=== PATIENT | female | born 1940 | race Caucasian/White ===

== ENCOUNTER → 2018-01-30 | Outpatient (REF) | payer MEDICARE, OTHER | LOC: M LAB REF 12:41 | DX: G47.411 Narcolepsy with cataplexy (principal) | CPT/HCPCS: 80180 ==

== ENCOUNTER → 2018-08-29 | Outpatient (REF) | payer MEDICARE, OTHER ==
[~2018-08-29] MED LIST: ACET65TA OR; BONIVA PO; CALCCHW12 OR; CIPR25SS OR; CLAR5CHW OR; COLA100C2 OR; COLA100C5 PO; CRAN400C PO; CRANPOW2 PO; DIOV320T OR; FIORICET OR; FLAG500T OR; FLON1SPR; GLIP5TAB8 PO; GLUC15002 PO; GLUCCAP13 PO; JANUVIA PO; KEPP250T PO; LEVA500T OR; LEVO250T PO; LIPI20TA PO; MODA200T15 PO; MULTIVIT PO; NEXI1CAP3 OR; NORV2TAB PO; PAXI40TA OR; PLAV75TA2 OR; SENO8.6T9 PO; VITA500C OR; ZOCO20TA OR; florinef; omega 3 PO
== END ==
LOC: M LAB REF 12:23
PROVIDERS: ATTEND Internal Medicine
DX: G47.411 Narcolepsy with cataplexy (principal)

== ENCOUNTER → 2018-10-15 | Outpatient (CLI) | payer MEDICARE, OTHER ==
--- NOTE | 2018-10-21 09:05 | SLEEP ---
DATE OF PROCEDURE: 10/15/2018 REFERRING PHYSICIAN: Dr. Rajesh He INTERPRETATION: Overnight polysomnography was performed with plan to do multiple sleep latency test the next day. The patient has a story of sleep apnea and narcolepsy with cataplexy. Polysomnography was to be performed on the patient's C-PAP. Her multiple sleep latency test was cancelled due to the patient requiring more than 2 cm increase in her C-PAP. A total of 8 hours and 52 minutes of data was reviewed with total sleep time 391.5 minutes with a short sleep latency and reduced sleep efficiency. Before the study, the patient was fit with Resmed Quattro full face mask and C-PAP trial was initiated at 11 cm of water pressure, which was increased to 14 cm of water pressure, which was successful for treating the patient's sleep apnea. There were no significant respiratory events, snoring, respiratory arousals or periodic limb movements of sleep. Electrocardiogram (EKG) revealed atrial fibrillation. Electroencephalogram (EEG) remained normal throughout. The oxygen saturation remained 88% throughout the study. CONCLUSION: Successful trial of C-PAP 14 cm of water pressure with suggested mask. Multiple sleep latency test, which was scheduled but was cancelled as the patient's C-PAP was titrated up. RECOMMENDATIONS: Nightly use of C-PAP 14 cm of water pressure with suggested mask.
== END ==
LOC: M SLEEP 19:08
PROVIDERS: ATTEND Psychiatry & Neurology Neurology
DX: G47.411 Narcolepsy with cataplexy (principal)

== ENCOUNTER → 2019-01-02 | Outpatient (CLI) | payer MEDICARE, OTHER ==
--- NOTE | 2019-01-02 17:12 | REP ---
HISTORY: Pain after trauma. There is a Colles' fracture. The bones are demineralized and degenerative changes seen throughout the wrist. The Colles' fracture has a radial intraarticular component. Electronically Signed by Masoud Ortiz DO 01/02/2019 06:01 P
== END ==
LOC: M WUC 14:29
PROVIDERS: ATTEND Nurse Practitioner Family
DX: S52.531A Colles' fracture of right radius, initial encounter for closed fracture (principal); X58.XXXA Exposure to other specified factors, initial encounter; Y92.89 Other specified places as the place of occurrence of the external cause

== ENCOUNTER → 2019-06-24 | Outpatient (REF) | payer MEDICARE, OTHER | LOC: M LAB REF 16:38 | PROVIDERS: ATTEND Internal Medicine | DX: N64.52 Nipple discharge (principal) ==

== ENCOUNTER → 2021-09-14 | Outpatient (CLI) | payer MEDICARE, OTHER | LOC: M PAIN 09:00 | PROVIDERS: ATTEND Nurse Practitioner Family | DX: M25.552 Pain in left hip (principal); E11.49 Type 2 diabetes mellitus with other diabetic neurological complication; G47.33 Obstructive sleep apnea (adult) (pediatric); I48.91 Unspecified atrial fibrillation; E78.00 Pure hypercholesterolemia, unspecified; K21.9 Gastro-esophageal reflux disease without esophagitis; G47.419 Narcolepsy without cataplexy; I95.1 Orthostatic hypotension; Z79.01 Long term (current) use of anticoagulants; Z79.891 Long term (current) use of opiate analgesic; Z79.899 Other long term (current) drug therapy; Z88.2 Allergy status to sulfonamides; Z88.0 Allergy status to penicillin; Z88.5 Allergy status to narcotic agent; Z88.8 Allergy status to other drugs, medicaments and biological substances ==

== ENCOUNTER → 2022-01-11 | Outpatient (CLI) | payer MEDICARE, OTHER ==
[2022-01-11 09:31] LABS: HEMATOCRIT 42.3 % (36.0-47.0); MEAN CORPUSCULAR HEMOGLOBIN 32.3 pg (27.0-33.0); MEAN CORPUSCULAR HGB CONC 33.1 g/dl (32.0-36.5); MEAN CORPUSCULAR VOLUME 97.7 fl (80.0-96.0); PLATELET COUNT, AUTOMATED 260 10^3/uL (150-450); RED BLOOD COUNT 4.33 10^6/uL (4.00-5.40); WHITE BLOOD COUNT 6.6 10^3/uL (4.0-10.0)
[2022-01-11 09:53] LABS: INR 1.02; PROTHROMBIN TIME 13.8 SECONDS (12.7-14.5)
[2022-01-11 10:08] LABS: ALT/SGPT 18 U/L (12-78); BILIRUBIN,TOTAL 0.4 MG/DL (0.2-1.0); BLOOD UREA NITROGEN 10 MG/DL (7-18); CALCIUM LEVEL 9.4 MG/DL (8.8-10.2); CARBON DIOXIDE LEVEL 29 MEQ/L (21-32); CHLORIDE LEVEL 101 MEQ/L (98-107); CREATININE FOR GFR 0.67 MG/DL (0.55-1.30); GLOMERULAR FILTRATION RATE > 60.0 (>32); GLUCOSE, FASTING 125 MG/DL (70-100); POTASSIUM SERUM 4.5 MEQ/L (3.5-5.1); SODIUM LEVEL 136 MEQ/L (136-145); TOTAL PROTEIN 7.5 GM/DL (6.4-8.2)
[2022-01-11 10:28] LABS: ERYTHROCYTE SEDIMENTATION RATE 33 mm/hr (0-30)
== END ==
LOC: M EKG 08:24
PROVIDERS: ATTEND Orthopaedic Surgery
DX: M16.12 Unilateral primary osteoarthritis, left hip (principal); Z79.01 Long term (current) use of anticoagulants

== ENCOUNTER → 2022-01-13 | Outpatient (CLI) | payer MEDICARE, OTHER | LOC: M RAD 08:34 | PROVIDERS: ATTEND Orthopaedic Surgery | DX: M16.12 Unilateral primary osteoarthritis, left hip (principal); I51.7 Cardiomegaly ==

== ENCOUNTER → 2022-02-15 | Outpatient (REF) ==
[2022-02-15 10:58] LABS: HEMATOCRIT 41.5 % (36.0-47.0); HEMOGLOBIN 13.4 g/dl (12.0-15.5); MEAN CORPUSCULAR HEMOGLOBIN 31.7 pg (27.0-33.0); MEAN CORPUSCULAR HGB CONC 32.3 g/dl (32.0-36.5); MEAN CORPUSCULAR VOLUME 98.1 fl (80.0-96.0); PLATELET COUNT, AUTOMATED 349 10^3/uL (150-450); RED BLOOD COUNT 4.23 10^6/uL (4.00-5.40); WHITE BLOOD COUNT 5.9 10^3/uL (4.0-10.0)
[2022-02-15 11:39] LABS: BLOOD UREA NITROGEN 11 MG/DL (7-18); CALCIUM LEVEL 9.2 MG/DL (8.8-10.2); CARBON DIOXIDE LEVEL 30 MEQ/L (21-32); CHLORIDE LEVEL 99 MEQ/L (98-107); CREATININE FOR GFR 0.77 MG/DL (0.55-1.30); GLOMERULAR FILTRATION RATE > 60.0 (>32); GLUCOSE, FASTING 113 MG/DL (70-100); POTASSIUM SERUM 3.9 MEQ/L (3.5-5.1); SODIUM LEVEL 134 MEQ/L (136-145)
== END ==
PROVIDERS: ATTEND Internal Medicine
DX: I50.30 Unspecified diastolic (congestive) heart failure (principal)

== ENCOUNTER → 2022-02-22 | Outpatient (REF) ==
[2022-02-22 12:02] LABS: HEMATOCRIT 39.1 % (36.0-47.0); HEMOGLOBIN 12.1 g/dl (12.0-15.5); MEAN CORPUSCULAR HEMOGLOBIN 31.1 pg (27.0-33.0); MEAN CORPUSCULAR HGB CONC 30.9 g/dl (32.0-36.5); MEAN CORPUSCULAR VOLUME 100.5 fl (80.0-96.0); PLATELET COUNT, AUTOMATED 299 10^3/uL (150-450); RED BLOOD COUNT 3.89 10^6/uL (4.00-5.40); WHITE BLOOD COUNT 6.5 10^3/uL (4.0-10.0)
[2022-02-22 12:53] LABS: BLOOD UREA NITROGEN 9 MG/DL (7-18); CARBON DIOXIDE LEVEL 29 MEQ/L (21-32); CHLORIDE LEVEL 102 MEQ/L (98-107); CREATININE FOR GFR 0.62 MG/DL (0.55-1.30); GLOMERULAR FILTRATION RATE > 60.0 (>32); GLUCOSE, FASTING 124 MG/DL (70-100); POTASSIUM SERUM 4.3 MEQ/L (3.5-5.1); SODIUM LEVEL 136 MEQ/L (136-145)
== END ==
PROVIDERS: ATTEND Internal Medicine
DX: I11.0 Hypertensive heart disease with heart failure (principal); I50.9 Heart failure, unspecified

== ENCOUNTER → 2022-03-08 | Outpatient (REF) | payer MEDICARE, OTHER | PROVIDERS: ATTEND Physician Assistant | DX: Z20.822 Contact with and (suspected) exposure to COVID-19 (principal) ==

== ENCOUNTER → 2022-08-18 | Outpatient (REF) | payer MEDICARE, OTHER ==
[2022-08-18 18:31] LABS: PERCENT SATURATION 25.2 % (13.2-45.0)
[2022-08-18 18:33] LABS: FERRITIN 23.8 NG/ML (7.3-270.7)
== END ==
LOC: M LAB REF 16:55
PROVIDERS: ATTEND Internal Medicine
DX: D50.9 Iron deficiency anemia, unspecified (principal)

== ENCOUNTER → 2022-08-31 | Outpatient (CLI) | payer MEDICARE, OTHER | LOC: M WHC 11:01 | PROVIDERS: ATTEND Internal Medicine | DX: M85.89 Other specified disorders of bone density and structure, multiple sites (principal); M81.0 Age-related osteoporosis without current pathological fracture ==

== ENCOUNTER 2022-11-16 11:36 | Day surgery (SDC) | payer MEDICARE, OTHER, MEDICAID ==
[~2022-11-16] VITALS: Ht 154.9 cm; Wt 108.5 kg
[~2022-11-16 11:36] MED LIST changes: +ACET650T15 PO; +CALC600T60 PO; +COEN100T PO; +DILT120T PO; +DOCU100C16 PO; +ELIQ5TAB PO; +FEXO-112 PO; +FLUT50SP17; +FURO20TA2 PO; +JANU100T PO; +LOSA25TA13 PO; +MILKSUS3 PO; +NYST1POW9 TOP; +PARO40TA2 PO; +ROSU5TAB5 PO; +VITA100093 PO
[2022-11-16] MEDS ORDERED: propofoL 200 MG/20 ML VIAL As Ordered ONE (13:33)
[2022-11-16 14:24] VITALS: BP 141/81; O2SAT 92
== END 2022-11-16 15:25 | disposition home or self-care (01) ==
LOC: M OPP 11:36
PROVIDERS: ATTEND Surgery
DX: D12.6 Benign neoplasm of colon, unspecified (principal); K64.4 Residual hemorrhoidal skin tags; K64.8 Other hemorrhoids; K62.5 Hemorrhage of anus and rectum; Z79.01 Long term (current) use of anticoagulants; Z79.82 Long term (current) use of aspirin; Z79.84 Long term (current) use of oral hypoglycemic drugs; Z88.0 Allergy status to penicillin; Z88.1 Allergy status to other antibiotic agents; Z88.2 Allergy status to sulfonamides; Z88.5 Allergy status to narcotic agent; Z88.6 Allergy status to analgesic agent

== ENCOUNTER 2023-01-18 08:31 | Day surgery (SDC) | payer MEDICARE, OTHER, MEDICAID ==
[~2023-01-18] VITALS: Ht 160 cm; Wt 109.0 kg
[~2023-01-18 08:31] MED LIST changes: +NS 1,000 ML IV ONE
[2023-01-18] MEDS ORDERED: propofoL 200 MG/20 ML VIAL As Ordered ONE (09:24)
[2023-01-18] MEDS ORDERED: LIDOCAINE 2% 100MG/5ML SDV (FOR ANES.) As Ordered ONE (09:25)
[2023-01-18] MEDS ORDERED: GLUCAGON INJ 1MG VIAL As Ordered ONE (10:40)
[2023-01-18 10:43] VITALS: TEMP 98
[2023-01-18 11:10] VITALS: BP 142/78; O2SAT 95
== END 2023-01-18 12:15 | disposition home or self-care (01) ==
LOC: M OPP 08:31
PROVIDERS: ATTEND Surgery
DX: Z86.010 Personal history of colon polyps (principal); Z08 Encounter for follow-up examination after completed treatment for malignant neoplasm; D12.2 Benign neoplasm of ascending colon; K57.30 Diverticulosis of large intestine without perforation or abscess without bleeding; Z85.038 Personal history of other malignant neoplasm of large intestine; Z87.891 Personal history of nicotine dependence; I48.91 Unspecified atrial fibrillation; I50.9 Heart failure, unspecified; E11.9 Type 2 diabetes mellitus without complications; G47.33 Obstructive sleep apnea (adult) (pediatric); Z99.89 Dependence on other enabling machines and devices; Z79.01 Long term (current) use of anticoagulants; Z79.1 Long term (current) use of non-steroidal anti-inflammatories (NSAID); Z79.51 Long term (current) use of inhaled steroids; Z79.83 Long term (current) use of bisphosphonates; Z79.84 Long term (current) use of oral hypoglycemic drugs; Z79.52 Long term (current) use of systemic steroids; Z79.02 Long term (current) use of antithrombotics/antiplatelets; Z79.899 Other long term (current) drug therapy; Z88.0 Allergy status to penicillin; Z88.1 Allergy status to other antibiotic agents; Z88.2 Allergy status to sulfonamides; Z88.5 Allergy status to narcotic agent; Z88.6 Allergy status to analgesic agent; Z88.7 Allergy status to serum and vaccine
CPT/HCPCS: 36415; 45388; 82947; J1610

== ENCOUNTER → 2023-02-27 | Outpatient (REF) | payer MEDICARE, OTHER, MEDICAID ==
[~2023-02-27] MED LIST changes: +GLIP5TAB17 PO; -GLIP5TAB8 PO; -NS 1,000 ML IV ONE
[2023-02-28 11:05] LABS: BACTERIA, URINE AUTO NEGATIVE (NEGATIVE); RBC, URINE AUTO 1 /HPF (0-3); SQUAMOUS EPITHELIAL CELL UR AU 1 /HPF (0-6); WBC, URINE AUTO 3 /HPF (0-3)
== END ==
PROVIDERS: ATTEND Internal Medicine
DX: L29.2 Pruritus vulvae (principal); Z79.899 Other long term (current) drug therapy

== ENCOUNTER → 2023-04-03 | Outpatient (REF) | payer MEDICARE, OTHER, MEDICAID ==
[2023-04-03 14:30] LABS: APPEARANCE, URINE HAZY (CLEAR); BACTERIA, URINE AUTO 1+ (NEGATIVE); BILIRUBIN, URINE AUTO NEGATIVE (NEGATIVE); BLOOD, URINE BLOOD NEGATIVE (NEGATIVE); COLOR, URINE YELLOW (YELLOW); GLUCOSE, URINE (UA) AUTO 3+ mg/dL (NEGATIVE); KETONE, URINE AUTO NEGATIVE (NEGATIVE); LEUKOCYTE ESTERASE, URINE AUTO TRACE (NEGATIVE); MUCUS, URINE SMALL (NEGATIVE); NITRITE, URINE AUTO NEGATIVE (NEGATIVE); PROTEIN, URINE AUTO NEGATIVE (NEGATIVE); RBC, URINE AUTO 3 /HPF (0-3); SPECIFIC GRAVITY URINE AUTO 1.029 (1.002-1.035); SQUAMOUS EPITHELIAL CELL UR AU 2 /HPF (0-6); UROBILINOGEN, URINE AUTO 0.2 mg/dL (0.0-2.0); WBC, URINE AUTO 0 /HPF (0-3)
== END ==
PROVIDERS: ATTEND Internal Medicine
DX: N39.0 Urinary tract infection, site not specified (principal)

== ENCOUNTER 2023-05-06 10:22 | Observation (INO) | payer MEDICARE, OTHER, MEDICAID ==
[~2023-05-06 10:22] MED LIST changes: -FLUT50SP17; +FLUTISP
[2023-05-06 11:11] LABS: BASO % 0.3 % (0.0-1.0); HEMOGLOBIN 14.5 g/dl (12.0-15.5); LYMPH # 0.2 10^3/uL (1.5-5.0); LYMPH % 2.7 % (24.0-44.0); MEAN CORPUSCULAR HEMOGLOBIN 32.7 pg (27.0-33.0); MEAN CORPUSCULAR HGB CONC 33.7 g/dl (32.0-36.5); MEAN CORPUSCULAR VOLUME 96.8 fl (80.0-96.0); MONO # 0.5 10^3/uL (0.0-0.8); MONO % 6.1 % (2.0-8.0); NEUTROPHILS % 90.3 % (36.0-66.0); PLATELET COUNT, AUTOMATED 227 10^3/uL (150-450); RED BLOOD COUNT 4.44 10^6/uL (4.00-5.40); WHITE BLOOD COUNT 8.9 10^3/uL (4.0-10.0)
[2023-05-06 11:42] LABS: ALBUMIN 3.6 G/DL (3.2-5.2); ALKALINE PHOSPHATASE 89 U/L (46-116); ALT/SGPT 17 U/L (7.0-40); AST/SGOT 18 U/L (<34); BILIRUBIN,DIRECT 0.2 MG/DL (<0.4); BILIRUBIN,TOTAL 0.4 MG/DL (0.3-1.2); BLOOD UREA NITROGEN 7 MG/DL (9-23); CALCIUM LEVEL 8.5 MG/DL (8.3-10.6); CARBON DIOXIDE LEVEL 25 MMOL/L (20-31); CHLORIDE LEVEL 97 MMOL/L (98-107); CK-MB VALUE MASS < 1.0 NG/ML (<3.6); CPK CREATINE PHOSPHOKINASE 90 U/L (34-145); CREATININE FOR GFR 0.53 MG/DL (0.55-1.30); GLOMERULAR FILTRATION RATE > 60.0 (>32); GLUCOSE, FASTING 186 MG/DL (74-106); MB/CK RELATIVE INDEX 1.11 (< OR =4); POTASSIUM SERUM 3.7 MMOL/L (3.5-5.1); SODIUM LEVEL 132 MMOL/L (136-145); TOTAL PROTEIN 7.5 G/DL (5.7-8.2)
[2023-05-06] MEDS ORDERED: OSELTAMIVIR PHOSPHATE 75 MG CAP (TAMIFLU) PO ONE (12:50)
[2023-05-06] MEDS ORDERED: GLUCOSE 4GM CHEW TABLET PO PRN (13:05)
[2023-05-06] MEDS ORDERED: GLUCAGON INJ 1MG VIAL SC PRN (13:05)
[2023-05-06] MEDS ORDERED: DEXTROSE 50% 50ML SYRINGE IV PRN (13:05)
[2023-05-06] MEDS ORDERED: MED REC IN PROGRESS XX SCH (14:40)
[2023-05-06] MEDS ORDERED: OSEL75CA2 PO (16:03)
[2023-05-06 16:43] VITALS: BP 169/84; TEMP 98.4; O2SAT 91
[2023-05-06] MEDS: INSULIN LISPRO (NovoLOG) PER UNIT SC SCH (17:26)
[2023-05-06] MEDS ORDERED: PILL CUTTER 1 EACH XX PRN (17:45)
[2023-05-06] MEDS: CALCIUM/VITAMIN D 500 MG TAB PO SCH (20:38)
[2023-05-06] MEDS: APIXABAN 5 MG TAB (ELIQUIS) PO SCH (20:39)
[2023-05-06] MEDS: dilTIAZem 60 MG TAB PO SCH (20:39)
[2023-05-06] MEDS ORDERED: CETIRIZINE (ZyrTEC) 10 MG TAB PO SCH (21:00)
[2023-05-06] MEDS ORDERED: CO-ENZYME Q10 50 MG CAP PO SCH (21:00)
[2023-05-06] MEDS ORDERED: ROSUVASTATIN 10 MG TAB (CRESTOR) PO SCH (21:00)
[2023-05-06] MEDS ORDERED: PARoxetine 20MG TABLET PO SCH (21:00)
[2023-05-06] MEDS: OSELTAMIVIR PHOSPHATE 75 MG CAP (TAMIFLU) PO SCH (21:06)
[2023-05-06 22:00] VITALS: BP 129/84; TEMP 97.2; O2SAT 94
[2023-05-07 02:19] VITALS: O2SAT 88
[2023-05-07 02:46] VITALS: O2SAT 93
[2023-05-07 04:00] VITALS: BP 160/76; TEMP 97.2; O2SAT 93
[2023-05-07 06:40] LABS: BASO % 0.3 % (0.0-1.0); HEMATOCRIT 41.7 % (36.0-47.0); HEMOGLOBIN 13.7 g/dl (12.0-15.5); LYMPH # 0.6 10^3/uL (1.5-5.0); LYMPH % 8.4 % (24.0-44.0); MEAN CORPUSCULAR HGB CONC 32.9 g/dl (32.0-36.5); MEAN CORPUSCULAR VOLUME 97.4 fl (80.0-96.0); MONO % 14.9 % (2.0-8.0); NEUTROPHILS % 75.9 % (36.0-66.0); PLATELET COUNT, AUTOMATED 201 10^3/uL (150-450); RED BLOOD COUNT 4.28 10^6/uL (4.00-5.40); WHITE BLOOD COUNT 6.6 10^3/uL (4.0-10.0)
[2023-05-07 07:27] LABS: BLOOD UREA NITROGEN 12 MG/DL (9-23); CALCIUM LEVEL 8.3 MG/DL (8.3-10.6); CARBON DIOXIDE LEVEL 25 MMOL/L (20-31); CHLORIDE LEVEL 95 MMOL/L (98-107); CREATININE FOR GFR 0.57 MG/DL (0.55-1.30); GLOMERULAR FILTRATION RATE > 60.0 (>32); GLUCOSE, FASTING 122 MG/DL (74-106); POTASSIUM SERUM 3.7 MMOL/L (3.5-5.1); SODIUM LEVEL 131 MMOL/L (136-145)
[2023-05-07] MEDS: CALCIUM/VITAMIN D 500 MG TAB PO SCH (08:30)
[2023-05-07] MEDS: OSELTAMIVIR PHOSPHATE 75 MG CAP (TAMIFLU) PO SCH (08:30)
[2023-05-07] MEDS: INSULIN LISPRO (NovoLOG) PER UNIT SC SCH ×2 (08:30→12:30)
[2023-05-07] MEDS: APIXABAN 5 MG TAB (ELIQUIS) PO SCH (08:31)
[2023-05-07] MEDS: dilTIAZem 60 MG TAB PO SCH ×2 (08:31→12:29)
[2023-05-07] MEDS ORDERED: FEXOFENADINE 60MG TAB PO SCH (09:00)
[2023-05-07] MEDS ORDERED: SITagliptin 50 MG TAB (JANUVIA) PO SCH (09:00)
[2023-05-07] MEDS ORDERED: PARoxetine 20MG TABLET PO SCH (09:00)
[2023-05-07] MEDS ORDERED: LOSARTAN 25 MG TAB PO SCH (09:00)
[2023-05-07] MEDS ORDERED: FUROSEMIDE 20 MG TAB PO SCH (09:00)
[2023-05-07 12:29] VITALS: BP 160/76
== END 2023-05-07 12:45 | disposition home or self-care (01) ==
LOC: M ED 10:22 → EDBD 10:22 → INTOOBSV 13:02 → M ED INP 13:02 → ENRESERV 15:17 → M MSPAV 16:15
PROVIDERS: ADMIT General Practice; ATTEND General Practice
DX: J96.01 Acute respiratory failure with hypoxia (principal); J09.X2 Influenza due to identified novel influenza A virus with other respiratory manifestations; E78.00 Pure hypercholesterolemia, unspecified; E78.5 Hyperlipidemia, unspecified; F41.9 Anxiety disorder, unspecified; I10 Essential (primary) hypertension; F32.A Depression, unspecified; G47.33 Obstructive sleep apnea (adult) (pediatric); G47.411 Narcolepsy with cataplexy; I25.10 Atherosclerotic heart disease of native coronary artery without angina pectoris; Z85.038 Personal history of other malignant neoplasm of large intestine; E11.9 Type 2 diabetes mellitus without complications; Z79.01 Long term (current) use of anticoagulants; Z79.899 Other long term (current) drug therapy; Z88.7 Allergy status to serum and vaccine; Z88.0 Allergy status to penicillin; Z88.1 Allergy status to other antibiotic agents; Z88.2 Allergy status to sulfonamides; Z88.5 Allergy status to narcotic agent; Z88.8 Allergy status to other drugs, medicaments and biological substances
CPT/HCPCS: 36415; 71045; 80048; 80076; 82550; 82553; 83605; 83880; 84484; 85025; 87040; 87486; 87581; 87633; 87635; 87798; 93005; 93041; 94760; 97161; 97165; 99285; G0378; J1815

== ENCOUNTER → 2023-08-07 | Outpatient (CLI) | payer MEDICARE, OTHER, MEDICAID ==
[~2023-08-07] MED LIST changes: +OSEL75CA2 PO
== END ==
LOC: M WHC 12:03
PROVIDERS: ATTEND Internal Medicine
DX: Z12.31 Encounter for screening mammogram for malignant neoplasm of breast (principal); N64.52 Nipple discharge
CPT/HCPCS: 76641; 77066; G0279

== ENCOUNTER 2023-08-18 21:02 | Inpatient (IN) | payer MEDICARE, OTHER, MEDICAID ==
[~2023-08-18] VITALS: Ht 157.5 cm; Wt 106.2 kg
[2023-08-18 21:30] LABS: VENOUS BASE EXCESS 3.2 (-2.0-2.0); VENOUS HCO3 28.4 MMOL/L (23.0-27.0); VENOUS O2 SATURATION 63.4 % (60.0-80.0); VENOUS PARTIAL PRESSURE O2 32.1 mmHg (30.0-50.0); VENOUS PH 7.418 UNITS (7.330-7.430); VENOUS STANDARD HCO3 26.3 MMOL/L; VENOUS TOTAL CO2 29.8 MMOL/L (24.0-28.0)
[2023-08-18 21:39] LABS: HEMATOCRIT 46.2 % (36.0-47.0); HEMOGLOBIN 15.5 g/dl (12.0-15.5); MEAN CORPUSCULAR HEMOGLOBIN 32.6 pg (27.0-33.0); MEAN CORPUSCULAR HGB CONC 33.5 g/dl (32.0-36.5); MEAN CORPUSCULAR VOLUME 97.1 fl (80.0-96.0); RED BLOOD COUNT 4.76 10^6/uL (4.00-5.40); WHITE BLOOD COUNT 14.2 10^3/uL (4.0-10.0)
[2023-08-18 21:40] LABS: BASO % 0.3 % (0.0-1.0); EOS # 0.1 10^3/uL (0.0-0.5); EOS % 0.5 % (0.0-3.0); LYMPH # 1.2 10^3/uL (1.5-5.0); LYMPH % 8.6 % (24.0-44.0); MONO # 1.2 10^3/uL (0.0-0.8); MONO % 8.1 % (2.0-8.0); NEUTROPHILS # 11.6 10^3/uL (1.5-8.5); NEUTROPHILS % 82.2 % (36.0-66.0); PLATELET COUNT, AUTOMATED 275 10^3/uL (150-450)
[2023-08-18 21:50] LABS: INR 1.34; PROTHROMBIN TIME 16.2 SECONDS (12.5-14.5)
[2023-08-18] MEDS: IPRATROPIUM 0.5MG/ALBUTEROL 2.5MG INH SOL UD 3ML (DUONEB) NEB PRN (22:05)
[2023-08-18 22:06] LABS: ALBUMIN 3.5 G/DL (3.2-5.2); ALKALINE PHOSPHATASE 107 U/L (46-116); ALT/SGPT 19 U/L (7.0-40); AST/SGOT 18 U/L (<34); BILIRUBIN,DIRECT 0.1 MG/DL (<0.4); BILIRUBIN,TOTAL 0.4 MG/DL (0.3-1.2); BLOOD UREA NITROGEN 11 MG/DL (9-23); CALCIUM LEVEL 9.6 MG/DL (8.3-10.6); CARBON DIOXIDE LEVEL 29 MMOL/L (20-31); CHLORIDE LEVEL 98 MMOL/L (98-107); CPK CREATINE PHOSPHOKINASE 98 U/L (34-145); CREATININE FOR GFR 0.61 MG/DL (0.55-1.30); GLOMERULAR FILTRATION RATE > 60.0 (>32); GLUCOSE, FASTING 177 MG/DL (74-106); MB/CK RELATIVE INDEX 1.02 (< OR =4); POTASSIUM SERUM 3.6 MMOL/L (3.5-5.1); SODIUM LEVEL 136 MMOL/L (136-145); TOTAL PROTEIN 7.7 G/DL (5.7-8.2)
[2023-08-18 22:11] LABS: ABG BASE EXCESS 2.5 (-2.0-2.0); ABG HCO3 25.2 MMOL/L (22.0-26.0); ABG PARTIAL PRESSURE CO2 33.7 mmHg (35.0-45.0); ABG PARTIAL PRESSURE O2 72.6 mmHg (75.0-100.0); ABG STANDARD HCO3 26.6 MMOL/L. (22.0-26.0); ABG TOTAL CO2 26.3 MMOL/L (23.0-31.0); ABG pH (ARTERIAL) 7.492 UNITS (7.350-7.450)
[2023-08-18] MEDS: cefTRIAXone SOD 2 GM in D5W MINI-BAG PLUS 50 ML IV ONE (22:19)
[2023-08-18] MEDS ORDERED: ISOVUE-370 76% 100ML VIAL As Ordered ONE (22:29)
[2023-08-18] MEDS ORDERED: GOLD BOND POWDER TOP (23:45)
[2023-08-18] MEDS ORDERED: JARD1TAB PO (23:45)
[2023-08-18] MEDS ORDERED: THERTAB52 PO (23:45)
[2023-08-18] MEDS ORDERED: MICO2CRE42 TOP (23:45)
[2023-08-18] MEDS ORDERED: PROA1AER2 INH (23:45)
[2023-08-18] MEDS ORDERED: CETI-24 PO (23:45)
[2023-08-18] MEDS ORDERED: TRUL10IN INJ (23:45)
[2023-08-18] MEDS ORDERED: CALC1TAB19 PO (23:45)
[2023-08-18] MEDS ORDERED: MEDIPAD6 EX (23:49)
[2023-08-18] MEDS ORDERED: HOME MED LIST COMPLETE! XX SCH (23:50)
[2023-08-19] MEDS ORDERED: GLUCAGON INJ 1MG VIAL SC PRN (00:40)
[2023-08-19] MEDS ORDERED: MAALOX 30 ML SUSP *UDC PO PRN (00:40)
[2023-08-19] MEDS ORDERED: DEXTROSE 50% 50ML SYRINGE IV PRN (00:40)
[2023-08-19] MEDS ORDERED: ALBUTEROL SULFATE 2.5MG/0.5ML INH NEB SOLN INH PRN (00:40)
[2023-08-19] MEDS ORDERED: GLUCOSE 4GM CHEW TABLET PO PRN (00:40)
[2023-08-19 01:19] LABS: MAGNESIUM LEVEL 1.6 MG/DL (1.8-2.4)
[2023-08-19 01:28] LABS: PROCALCITONIN 0.04 ng/ml
[2023-08-19 01:55] LABS: VENOUS O2 SATURATION 94.9 % (60.0-80.0); VENOUS PARTIAL PRESSURE CO2 37.4 mmHg (38.0-50.0); VENOUS PARTIAL PRESSURE O2 74.3 mmHg (30.0-50.0); VENOUS PH 7.426 UNITS (7.330-7.430); VENOUS STANDARD HCO3 24.4 MMOL/L; VENOUS TOTAL CO2 25.2 MMOL/L (24.0-28.0)
[2023-08-19] MEDS: IPRATROPIUM 0.5MG/ALBUTEROL 2.5MG INH SOL UD 3ML (DUONEB) INH SCH (02:00)
[2023-08-19 02:11] LABS: HEMOGLOBIN A1c 7.8 % (4.0-6.0)
[2023-08-19 02:54] VITALS: BP 149/85; TEMP 98.1; O2SAT 94
[2023-08-19] MEDS: methylPREDNISolone 40MG 1ML VIAL IV SCH (03:30)
[2023-08-19] MEDS: DOXYCYCLINE HYCLATE 100MG TABLET PO SCH (03:30)
[2023-08-19] MEDS: NS 1,000 ML IV SCH (03:31)
[2023-08-19] MEDS: CEFEPIME HCL 2 GM in D5W MINI-BAG PLUS 50 ML IV SCH (05:37)
[2023-08-19 06:38] VITALS: BP 142/71; TEMP 98.6; O2SAT 92
[2023-08-19 06:44] LABS: HEMATOCRIT 43.7 % (36.0-47.0); HEMOGLOBIN 14.4 g/dl (12.0-15.5); MEAN CORPUSCULAR VOLUME 97.1 fl (80.0-96.0); WHITE BLOOD COUNT 10.4 10^3/uL (4.0-10.0)
[2023-08-19 06:45] LABS: PLATELET COUNT, AUTOMATED 271 10^3/uL (150-450)
[2023-08-19 07:13] LABS: ALBUMIN 3.3 G/DL (3.2-5.2); ALKALINE PHOSPHATASE 93 U/L (46-116); ALT/SGPT 17 U/L (7.0-40); AST/SGOT 16 U/L (<34); BILIRUBIN,TOTAL 0.4 MG/DL (0.3-1.2); BLOOD UREA NITROGEN 11 MG/DL (9-23); CALCIUM LEVEL 9.8 MG/DL (8.3-10.6); CARBON DIOXIDE LEVEL 26 MMOL/L (20-31); CHLORIDE LEVEL 98 MMOL/L (98-107); GLOMERULAR FILTRATION RATE > 60.0 (>32); GLUCOSE, FASTING 248 MG/DL (74-106); MAGNESIUM LEVEL 1.8 MG/DL (1.8-2.4); SODIUM LEVEL 135 MMOL/L (136-145); TOTAL PROTEIN 7.4 G/DL (5.7-8.2)
[2023-08-19 07:25] LABS: PROCALCITONIN 0.05 ng/ml
[2023-08-19] MEDS: dilTIAZem 60 MG TAB PO SCH (08:34)
[2023-08-19] MEDS: INSULIN LISPRO (NovoLOG) PER UNIT SC SCH ×2 (08:34→20:19)
[2023-08-19] MEDS: LOSARTAN 25 MG TAB PO SCH (08:35)
[2023-08-19] MEDS: APIXABAN 5 MG TAB (ELIQUIS) PO SCH (08:35)
[2023-08-19] MEDS: FUROSEMIDE 20 MG TAB PO SCH (08:36)
[2023-08-19 14:00] VITALS: BP 140/72; TEMP 99.3; O2SAT 92
[2023-08-19 20:19] VITALS: BP 116/71; TEMP 98.1; O2SAT 91
[2023-08-19] MEDS: ROSUVASTATIN 10 MG TAB (CRESTOR) PO SCH (20:25)
[2023-08-19] MEDS: ACETAMINOPHEN 650MG ER TAB (TYLENOL ARTHRITIS) PO PRN (20:27)
[2023-08-19] MEDS: CETIRIZINE (ZyrTEC) 10 MG TAB PO SCH (20:27)
[2023-08-19] MEDS: DOCUSATE SODIUM 100MG CAPSULE PO SCH (20:27)
[2023-08-19] MEDS: CEFDINIR 300 MG CAP (OMNICEF) PO SCH (20:27)
[2023-08-19] MEDS: PARoxetine 20MG TABLET PO SCH (20:27)
[2023-08-20] VITALS (13 sets, daily range): BP systolic 129–138; BP diastolic 61–87; TEMP 98.1–99.3; O2SAT 86–94
[2023-08-20] MEDS: MIDODRINE 5 MG TAB PO SCH (08:00)
[2023-08-20] MEDS: BUDESONIDE 180MCG INHALER (PULMICORT FLEXHALER) INH SCH (08:00)
[2023-08-20] MEDS: metOLazone 5 MG TAB PO ONE (08:26)
[2023-08-20] MEDS ORDERED: predniSONE 20 MG TAB PO SCH (09:00)
[2023-08-20 09:23] LABS: PROCALCITONIN 0.04 ng/ml
[2023-08-20 09:24] LABS: BASO % 0.1 % (0.0-1.0); HEMATOCRIT 43.2 % (36.0-47.0); LYMPH # 0.7 10^3/uL (1.5-5.0); LYMPH % 3.2 % (24.0-44.0); MEAN CORPUSCULAR HEMOGLOBIN 32.6 pg (27.0-33.0); MEAN CORPUSCULAR HGB CONC 32.4 g/dl (32.0-36.5); MEAN CORPUSCULAR VOLUME 100.7 fl (80.0-96.0); MONO # 0.5 10^3/uL (0.0-0.8); MONO % 2.3 % (2.0-8.0); NEUTROPHILS # 19.8 10^3/uL (1.5-8.5); NEUTROPHILS % 93.7 % (36.0-66.0); PLATELET COUNT, AUTOMATED 309 10^3/uL (150-450); RED BLOOD COUNT 4.29 10^6/uL (4.00-5.40); WHITE BLOOD COUNT 21.1 10^3/uL (4.0-10.0)
[2023-08-20 09:31] LABS: ALBUMIN 3.3 G/DL (3.2-5.2); ALKALINE PHOSPHATASE 93 U/L (46-116); ALT/SGPT 17 U/L (7.0-40); AST/SGOT 18 U/L (<34); BILIRUBIN,TOTAL 0.3 MG/DL (0.3-1.2); BLOOD UREA NITROGEN 18 MG/DL (9-23); CALCIUM LEVEL 8.8 MG/DL (8.3-10.6); CARBON DIOXIDE LEVEL 22 MMOL/L (20-31); CHLORIDE LEVEL 102 MMOL/L (98-107); CREATININE FOR GFR 0.57 MG/DL (0.55-1.30); ERYTHROCYTE SEDIMENTATION RATE 80 mm/hr (0-30); GLOMERULAR FILTRATION RATE > 60.0 (>32); GLUCOSE, FASTING 349 MG/DL (74-106); POTASSIUM SERUM 4.1 MMOL/L (3.5-5.1); SODIUM LEVEL 138 MMOL/L (136-145); TOTAL PROTEIN 7.1 G/DL (5.7-8.2)
[2023-08-20] MEDS: FUROSEMIDE 40MG/4ML VIAL IV ONE ×2 (09:51→14:17)
[2023-08-20] MEDS: methylPREDNISolone 125MG 2ML VIAL IV ONE (09:52)
[2023-08-20] MEDS: IPRATROPIUM 0.5MG/ALBUTEROL 2.5MG INH SOL UD 3ML (DUONEB) NEB SCH (11:17)
[2023-08-20 11:50] LABS: ABG BASE EXCESS -0.7 (-2.0-2.0); ABG HCO3 21.8 MMOL/L (22.0-26.0); ABG O2 SATURATION 94.2 % (95.0-99.0); ABG PARTIAL PRESSURE CO2 30.5 mmHg (35.0-45.0); ABG PARTIAL PRESSURE O2 66.1 mmHg (75.0-100.0); ABG STANDARD HCO3 23.8 MMOL/L. (22.0-26.0); ABG TOTAL CO2 22.8 MMOL/L (23.0-31.0); ABG pH (ARTERIAL) 7.473 UNITS (7.350-7.450)
[2023-08-20] MEDS: guaiFENesin ER TABLET 600 MG TAB PO SCH (12:23)
[2023-08-20] MEDS: methylPREDNISolone 125MG 2ML VIAL IV SCH (16:05)
[2023-08-20] MEDS: SODIUM CHLORIDE 0.9% NASAL GEL 15GM (AYR) SCH (17:00)
[2023-08-20] MEDS: NYSTATIN 100,000 UNITS/GM TOPICAL PWD 15GM TOP SCH (21:07)
[2023-08-20] MEDS: SODIUM CHLORIDE NASAL 0.65% SPRAY BTL (OCEAN) PRN (21:11)
[2023-08-20] MEDS ORDERED: ALBUTEROL SULFATE 2.5MG/0.5ML INH NEB SOLN NEB PRN (21:50)
[2023-08-20] MEDS: FORMOTEROL FUMARATE 20 MCG/2 ML INHALATION SOLUTION (PERFOROMIST) INH SCH (21:57)
[2023-08-21] VITALS (7 sets, daily range): BP systolic 132–138; BP diastolic 77–87; TEMP 97–97.9; O2SAT 92–95
[2023-08-21 06:19] LABS: BASO % 0.1 % (0.0-1.0); EOS % 0.1 % (0.0-3.0); HEMATOCRIT 41.7 % (36.0-47.0); LYMPH # 0.5 10^3/uL (1.5-5.0); LYMPH % 2.7 % (24.0-44.0); MEAN CORPUSCULAR HEMOGLOBIN 32.3 pg (27.0-33.0); MEAN CORPUSCULAR HGB CONC 33.6 g/dl (32.0-36.5); MEAN CORPUSCULAR VOLUME 96.3 fl (80.0-96.0); MONO # 0.2 10^3/uL (0.0-0.8); MONO % 1.4 % (2.0-8.0); NEUTROPHILS # 16.1 10^3/uL (1.5-8.5); NEUTROPHILS % 94.9 % (36.0-66.0); PLATELET COUNT, AUTOMATED 297 10^3/uL (150-450); RED BLOOD COUNT 4.33 10^6/uL (4.00-5.40)
[2023-08-21 06:51] LABS: BLOOD UREA NITROGEN 34 MG/DL (9-23); CALCIUM LEVEL 9.1 MG/DL (8.3-10.6); CARBON DIOXIDE LEVEL 28 MMOL/L (20-31); CHLORIDE LEVEL 100 MMOL/L (98-107); CREATININE FOR GFR 0.65 MG/DL (0.55-1.30); GLOMERULAR FILTRATION RATE > 60.0 (>32); GLUCOSE, FASTING 300 MG/DL (74-106); POTASSIUM SERUM 4.1 MMOL/L (3.5-5.1); SODIUM LEVEL 139 MMOL/L (136-145)
[2023-08-21] MEDS: INSULIN LISPRO (NovoLOG) PER UNIT SC SCH (12:45)
[2023-08-21] MEDS: LEVEMIR (INSULIN DETEMIR) 1 UNITS/0.01ML SC ONE (12:46)
[2023-08-22] VITALS (7 sets, daily range): BP systolic 146–168; BP diastolic 80–98; TEMP 97.5–98.8; O2SAT 91–96
[2023-08-22] MEDS: CHLORASEPTIC SPRAY MT PRN (05:13)
[2023-08-22 07:30] LABS: BASO % 0.1 % (0.0-1.0); EOS % 0.1 % (0.0-3.0); HEMATOCRIT 43.5 % (36.0-47.0); HEMOGLOBIN 14.5 g/dl (12.0-15.5); LYMPH # 0.5 10^3/uL (1.5-5.0); LYMPH % 3.5 % (24.0-44.0); MEAN CORPUSCULAR HEMOGLOBIN 32.4 pg (27.0-33.0); MEAN CORPUSCULAR HGB CONC 33.3 g/dl (32.0-36.5); MEAN CORPUSCULAR VOLUME 97.3 fl (80.0-96.0); MONO # 0.3 10^3/uL (0.0-0.8); MONO % 2.3 % (2.0-8.0); NEUTROPHILS # 12.2 10^3/uL (1.5-8.5); NEUTROPHILS % 93.1 % (36.0-66.0); PLATELET COUNT, AUTOMATED 315 10^3/uL (150-450); RED BLOOD COUNT 4.47 10^6/uL (4.00-5.40); WHITE BLOOD COUNT 13.1 10^3/uL (4.0-10.0)
[2023-08-22 08:02] LABS: BLOOD UREA NITROGEN 35 MG/DL (9-23); CALCIUM LEVEL 8.8 MG/DL (8.3-10.6); CARBON DIOXIDE LEVEL 28 MMOL/L (20-31); CHLORIDE LEVEL 100 MMOL/L (98-107); GLOMERULAR FILTRATION RATE > 60.0 (>32); GLUCOSE, FASTING 280 MG/DL (74-106); POTASSIUM SERUM 4.2 MMOL/L (3.5-5.1); SODIUM LEVEL 138 MMOL/L (136-145)
[2023-08-22] MEDS: LEVEMIR (INSULIN DETEMIR) 1 UNITS/0.01ML SC SCH ×2 (09:02→21:06)
[2023-08-23 01:18] VITALS: O2SAT 94
[2023-08-23 06:00] VITALS: BP 134/82; TEMP 97.9; O2SAT 91
[2023-08-23 06:49] LABS: BASO % 0.1 % (0.0-1.0); HEMATOCRIT 44.1 % (36.0-47.0); HEMOGLOBIN 14.9 g/dl (12.0-15.5); LYMPH # 0.4 10^3/uL (1.5-5.0); MEAN CORPUSCULAR HEMOGLOBIN 32.5 pg (27.0-33.0); MEAN CORPUSCULAR HGB CONC 33.8 g/dl (32.0-36.5); MEAN CORPUSCULAR VOLUME 96.3 fl (80.0-96.0); MONO # 0.2 10^3/uL (0.0-0.8); MONO % 1.8 % (2.0-8.0); NEUTROPHILS # 10.1 10^3/uL (1.5-8.5); NEUTROPHILS % 93.1 % (36.0-66.0); PLATELET COUNT, AUTOMATED 329 10^3/uL (150-450); RED BLOOD COUNT 4.58 10^6/uL (4.00-5.40); WHITE BLOOD COUNT 10.8 10^3/uL (4.0-10.0)
[2023-08-23 07:11] LABS: BLOOD UREA NITROGEN 31 MG/DL (9-23); CALCIUM LEVEL 8.7 MG/DL (8.3-10.6); CARBON DIOXIDE LEVEL 27 MMOL/L (20-31); CHLORIDE LEVEL 101 MMOL/L (98-107); CREATININE FOR GFR 0.62 MG/DL (0.55-1.30); GLOMERULAR FILTRATION RATE > 60.0 (>32); GLUCOSE, FASTING 294 MG/DL (74-106); POTASSIUM SERUM 4.4 MMOL/L (3.5-5.1); SODIUM LEVEL 136 MMOL/L (136-145)
[2023-08-23] MEDS ORDERED: INSULIN LISPRO (NovoLOG) PER UNIT SC SCH (07:30)
[2023-08-23] MEDS: LEVEMIR (INSULIN DETEMIR) 1 UNITS/0.01ML SC ONE (09:33)
[2023-08-23] MEDS: INSULIN LISPRO (NovoLOG) PER UNIT SC SCH (09:33)
[2023-08-23 14:00] VITALS: BP 139/92; TEMP 98.8; O2SAT 89
[2023-08-23 20:45] VITALS: BP 154/84; TEMP 98.6; O2SAT 93
[2023-08-24 04:15] VITALS: BP 168/95
[2023-08-24 06:00] VITALS: BP 139/91; TEMP 97.7; O2SAT 91
[2023-08-24 07:23] LABS: BASO % 0.1 % (0.0-1.0); HEMATOCRIT 47.3 % (36.0-47.0); HEMOGLOBIN 15.7 g/dl (12.0-15.5); LYMPH # 0.3 10^3/uL (1.5-5.0); LYMPH % 1.9 % (24.0-44.0); MEAN CORPUSCULAR HGB CONC 33.2 g/dl (32.0-36.5); MEAN CORPUSCULAR VOLUME 96.3 fl (80.0-96.0); MONO # 0.4 10^3/uL (0.0-0.8); MONO % 2.4 % (2.0-8.0); NEUTROPHILS # 15.2 10^3/uL (1.5-8.5); NEUTROPHILS % 94.6 % (36.0-66.0); PLATELET COUNT, AUTOMATED 344 10^3/uL (150-450); RED BLOOD COUNT 4.91 10^6/uL (4.00-5.40); WHITE BLOOD COUNT 16.1 10^3/uL (4.0-10.0)
[2023-08-24 07:59] LABS: BLOOD UREA NITROGEN 33 MG/DL (9-23); CALCIUM LEVEL 8.6 MG/DL (8.3-10.6); CARBON DIOXIDE LEVEL 26 MMOL/L (20-31); CHLORIDE LEVEL 103 MMOL/L (98-107); GLOMERULAR FILTRATION RATE > 60.0 (>32); GLUCOSE, FASTING 310 MG/DL (74-106); POTASSIUM SERUM 4.2 MMOL/L (3.5-5.1); SODIUM LEVEL 133 MMOL/L (136-145)
[2023-08-24] MEDS: BISACODYL 10MG SUPP PR ONE ×2 (13:25→17:35)
[2023-08-24 14:16] LABS: ALBUMIN 2.8 G/DL (3.2-5.2); BILIRUBIN,DIRECT 0.1 MG/DL (<0.4); BILIRUBIN,TOTAL 0.3 MG/DL (0.3-1.2); TOTAL PROTEIN 6.6 G/DL (5.7-8.2)
[2023-08-24 14:17] LABS: LIPASE 85 U/L (12-53)
[2023-08-24 14:18] LABS: AMYLASE 114 U/L (30-118)
[2023-08-24] MEDS ORDERED: D5W/0.45% SODIUM CHLORIDE 1,000 ML IV SCH (14:35)
[2023-08-24] MEDS: NS 1,000 ML IV ONE (15:53)
[2023-08-24] MEDS: LEVEMIR (INSULIN DETEMIR) 1 UNITS/0.01ML SC ONE (15:55)
[2023-08-24 16:00] VITALS: BP 162/100; TEMP 98.1; O2SAT 92
[2023-08-24] MEDS: SENOKOT S TAB PO ONE (17:34)
[2023-08-24] MEDS: metroNIDAZOLE 500 MG in IV 1 EA IV SCH (17:34)
[2023-08-24] MEDS: **hydrALAZINE HCL** 25 MG TAB PO ONE (17:34)
[2023-08-24] MEDS: cloNIDine 0.1MG TABLET PO ONE (17:34)
[2023-08-24] MEDS: MOM 30ML SUSPENSION UDC PO PRN (20:09)
[2023-08-24] MEDS: FLEET ENEMA PR ONE (20:12)
[2023-08-24 21:32] LABS: VENOUS HCO3 23.5 MMOL/L (23.0-27.0); VENOUS O2 SATURATION 98.5 % (60.0-80.0); VENOUS PARTIAL PRESSURE CO2 35.4 mmHg (38.0-50.0); VENOUS PARTIAL PRESSURE O2 108.7 mmHg (30.0-50.0); VENOUS STANDARD HCO3 24.5 MMOL/L; VENOUS TOTAL CO2 24.6 MMOL/L (24.0-28.0)
[2023-08-24 21:40] LABS: BASO % 0.1 % (0.0-1.0); HEMATOCRIT 46.8 % (36.0-47.0); LYMPH # 0.5 10^3/uL (1.5-5.0); LYMPH % 2.4 % (24.0-44.0); MEAN CORPUSCULAR HEMOGLOBIN 32.8 pg (27.0-33.0); MEAN CORPUSCULAR HGB CONC 34.2 g/dl (32.0-36.5); MEAN CORPUSCULAR VOLUME 95.9 fl (80.0-96.0); MONO # 1.6 10^3/uL (0.0-0.8); MONO % 7.2 % (2.0-8.0); NEUTROPHILS # 19.8 10^3/uL (1.5-8.5); NEUTROPHILS % 89.4 % (36.0-66.0); PLATELET COUNT, AUTOMATED 341 10^3/uL (150-450); RED BLOOD COUNT 4.88 10^6/uL (4.00-5.40); WHITE BLOOD COUNT 22.2 10^3/uL (4.0-10.0)
[2023-08-24 21:49] VITALS: O2SAT 93
[2023-08-24 22:00] VITALS: BP 125/68; TEMP 97.5; O2SAT 93
[2023-08-24] MEDS ORDERED: methylPREDNISolone 40MG 1ML VIAL IV SCH (22:00)
[2023-08-24 22:05] LABS: ALBUMIN 2.9 G/DL (3.2-5.2); ALKALINE PHOSPHATASE 92 U/L (46-116); ALT/SGPT 43 U/L (7.0-40); AST/SGOT 27 U/L (<34); BILIRUBIN,TOTAL 0.3 MG/DL (0.3-1.2); BLOOD UREA NITROGEN 26 MG/DL (9-23); CALCIUM LEVEL 8.5 MG/DL (8.3-10.6); CARBON DIOXIDE LEVEL 26 MMOL/L (20-31); CHLORIDE LEVEL 103 MMOL/L (98-107); CREATININE FOR GFR 0.57 MG/DL (0.55-1.30); GLOMERULAR FILTRATION RATE > 60.0 (>32); GLUCOSE, FASTING 226 MG/DL (74-106); LIPASE 102 U/L (12-53); MAGNESIUM LEVEL 2.1 MG/DL (1.8-2.4); POTASSIUM SERUM 4.4 MMOL/L (3.5-5.1); SODIUM LEVEL 139 MMOL/L (136-145); TOTAL PROTEIN 6.5 G/DL (5.7-8.2)
[2023-08-24] MEDS: **hydrALAZINE HCL** 25 MG TAB PO SCH (23:05)
[2023-08-24] MEDS: NS 500 ML IV ONE (23:06)
[2023-08-24 23:12] LABS: PROCALCITONIN <0.04 ng/ml
[2023-08-25 03:26] LABS: BASO % 0.2 % (0.0-1.0); LYMPH # 0.8 10^3/uL (1.5-5.0); LYMPH % 3.6 % (24.0-44.0); MEAN CORPUSCULAR HGB CONC 34.1 g/dl (32.0-36.5); MEAN CORPUSCULAR VOLUME 96.7 fl (80.0-96.0); MONO # 1.5 10^3/uL (0.0-0.8); MONO % 6.9 % (2.0-8.0); NEUTROPHILS % 88.2 % (36.0-66.0); PLATELET COUNT, AUTOMATED 319 10^3/uL (150-450); RED BLOOD COUNT 4.55 10^6/uL (4.00-5.40); WHITE BLOOD COUNT 21.5 10^3/uL (4.0-10.0)
[2023-08-25 04:01] LABS: ALBUMIN 2.5 G/DL (3.2-5.2); ALKALINE PHOSPHATASE 78 U/L (46-116); ALT/SGPT 36 U/L (7.0-40); AST/SGOT 18 U/L (<34); BILIRUBIN,DIRECT 0.1 MG/DL (<0.4); BILIRUBIN,TOTAL 0.3 MG/DL (0.3-1.2); BLOOD UREA NITROGEN 26 MG/DL (9-23); CALCIUM LEVEL 8.2 MG/DL (8.3-10.6); CARBON DIOXIDE LEVEL 27 MMOL/L (20-31); CHLORIDE LEVEL 107 MMOL/L (98-107); CREATININE FOR GFR 0.53 MG/DL (0.55-1.30); GLOMERULAR FILTRATION RATE > 60.0 (>32); GLUCOSE, FASTING 210 MG/DL (74-106); SODIUM LEVEL 137 MMOL/L (136-145); TOTAL PROTEIN 5.8 G/DL (5.7-8.2)
[2023-08-25 06:00] VITALS: BP 133/80; TEMP 97.7; O2SAT 94
[2023-08-25 09:00] VITALS: O2SAT 95
[2023-08-25] MEDS ORDERED: FUROSEMIDE 20 MG TAB PO SCH (09:00)
[2023-08-25] MEDS: predniSONE 10MG TAB PO SCH (09:06)
[2023-08-25] MEDS: LEVEMIR (INSULIN DETEMIR) 1 UNITS/0.01ML SC SCH (09:12)
[2023-08-25] MEDS ORDERED: SODIUM CHLORIDE 0.9% NASAL GEL 15GM (AYR) PRN (13:25)
[2023-08-25 14:00] VITALS: BP 163/86; TEMP 98.1; O2SAT 94
[2023-08-25] MEDS: LOSARTAN 25 MG TAB PO ONE (14:46)
[2023-08-25] MEDS: FUROSEMIDE 20MG/2ML VIAL IV ONE (14:46)
[2023-08-25] MEDS: CO-ENZYME Q10 50 MG CAP PO SCH (19:58)
[2023-08-25 21:00] VITALS: O2SAT 93
[2023-08-25 22:01] VITALS: BP 144/75; TEMP 97.5; O2SAT 94
[2023-08-26 06:00] VITALS: BP 127/80; TEMP 98.1; O2SAT 94
[2023-08-26 06:59] LABS: BASO # 0.1 10^3/uL (0.0-0.2); BASO % 0.2 % (0.0-1.0); EOS # 0.1 10^3/uL (0.0-0.5); EOS % 0.6 % (0.0-3.0); HEMATOCRIT 44.3 % (36.0-47.0); HEMOGLOBIN 14.8 g/dl (12.0-15.5); LYMPH # 1.2 10^3/uL (1.5-5.0); LYMPH % 5.4 % (24.0-44.0); MEAN CORPUSCULAR HEMOGLOBIN 32.5 pg (27.0-33.0); MEAN CORPUSCULAR HGB CONC 33.4 g/dl (32.0-36.5); MEAN CORPUSCULAR VOLUME 97.1 fl (80.0-96.0); MONO # 1.5 10^3/uL (0.0-0.8); MONO % 6.8 % (2.0-8.0); NEUTROPHILS # 18.7 10^3/uL (1.5-8.5); NEUTROPHILS % 85.5 % (36.0-66.0); PLATELET COUNT, AUTOMATED 271 10^3/uL (150-450); RED BLOOD COUNT 4.56 10^6/uL (4.00-5.40); WHITE BLOOD COUNT 21.8 10^3/uL (4.0-10.0)
[2023-08-26 07:23] LABS: BLOOD UREA NITROGEN 17 MG/DL (9-23); CALCIUM LEVEL 7.8 MG/DL (8.3-10.6); CARBON DIOXIDE LEVEL 29 MMOL/L (20-31); CHLORIDE LEVEL 101 MMOL/L (98-107); CREATININE FOR GFR 0.59 MG/DL (0.55-1.30); GLOMERULAR FILTRATION RATE > 60.0 (>32); GLUCOSE, FASTING 104 MG/DL (74-106); POTASSIUM SERUM 3.5 MMOL/L (3.5-5.1); SODIUM LEVEL 138 MMOL/L (136-145)
[2023-08-26 09:30] VITALS: O2SAT 95
[2023-08-26] MEDS: FUROSEMIDE 20 MG TAB PO SCH (09:51)
[2023-08-26] MEDS: LOSARTAN 25 MG TAB PO SCH (09:54)
[2023-08-26 14:00] VITALS: BP 137/75; TEMP 98.2; O2SAT 94
[2023-08-26 20:18] VITALS: O2SAT 93
[2023-08-26] MEDS: SENOKOT S TAB PO SCH (21:08)
[2023-08-26 22:00] VITALS: BP 135/78; TEMP 98.1; O2SAT 93
[2023-08-27 05:55] LABS: BASO % 0.2 % (0.0-1.0); EOS # 0.1 10^3/uL (0.0-0.5); EOS % 0.7 % (0.0-3.0); HEMATOCRIT 42.4 % (36.0-47.0); HEMOGLOBIN 13.9 g/dl (12.0-15.5); LYMPH # 1.2 10^3/uL (1.5-5.0); MEAN CORPUSCULAR HEMOGLOBIN 32.2 pg (27.0-33.0); MEAN CORPUSCULAR HGB CONC 32.8 g/dl (32.0-36.5); MEAN CORPUSCULAR VOLUME 98.1 fl (80.0-96.0); MONO % 5.7 % (2.0-8.0); NEUTROPHILS # 14.8 10^3/uL (1.5-8.5); NEUTROPHILS % 84.4 % (36.0-66.0); PLATELET COUNT, AUTOMATED 270 10^3/uL (150-450); RED BLOOD COUNT 4.32 10^6/uL (4.00-5.40); WHITE BLOOD COUNT 17.6 10^3/uL (4.0-10.0)
[2023-08-27 06:00] VITALS: BP 131/80; TEMP 97.9; O2SAT 95
[2023-08-27 06:23] LABS: BLOOD UREA NITROGEN 18 MG/DL (9-23); CALCIUM LEVEL 7.8 MG/DL (8.3-10.6); CARBON DIOXIDE LEVEL 29 MMOL/L (20-31); CHLORIDE LEVEL 100 MMOL/L (98-107); CREATININE FOR GFR 0.62 MG/DL (0.55-1.30); GLOMERULAR FILTRATION RATE > 60.0 (>32); GLUCOSE, FASTING 174 MG/DL (74-106); POTASSIUM SERUM 3.7 MMOL/L (3.5-5.1); SODIUM LEVEL 136 MMOL/L (136-145)
[2023-08-27] MEDS ORDERED: PRED10TA2 PO (12:18)
[2023-08-27] MEDS ORDERED: CEFD300CAP PO (12:18)
[2023-08-27] MEDS ORDERED: VENTAER INH (12:18)
[2023-08-27] MEDS ORDERED: BUDE180INH INH (12:18)
[2023-08-27] MEDS ORDERED: DOXY100T PO (12:18)
[2023-08-27] MEDS ORDERED: MONT10TA97 PO (12:19)
[2023-08-27] MEDS: MONTELUKAST 10 MG TAB PO SCH (12:48)
[2023-08-27 14:00] VITALS: BP 123/61; TEMP 98.1; O2SAT 94
[2023-08-27] MEDS ORDERED: ARNU1INH3 PO (14:51)
[2023-08-27] MEDS ORDERED: FLUT12AE3 IH (16:30)
[2023-08-27 20:38] VITALS: BP 142/79; TEMP 98.1; O2SAT 94
[2023-08-28 05:40] VITALS: BP 137/83; TEMP 97.7; O2SAT 96
[2023-08-28 08:35] VITALS: BP 137/83
== END 2023-08-28 10:06 | DRG 871 ==
LOC: M ED 21:02 → EDBD 21:02 → M ED INP 23:38 → M MSPAV 08-19 02:54
PROVIDERS: ADMIT Internal Medicine; ATTEND Hospitalist
PROC: B246ZZZ Ultrasonography of Right and Left Heart (ICD-10-PCS; principal; 2023-08-24)
DX: A41.89 Other specified sepsis (principal); J96.01 Acute respiratory failure with hypoxia; J45.901 Unspecified asthma with (acute) exacerbation; J98.11 Atelectasis; E87.1 Hypo-osmolality and hyponatremia; Z66 Do not resuscitate; B34.8 Other viral infections of unspecified site; I11.0 Hypertensive heart disease with heart failure; G47.33 Obstructive sleep apnea (adult) (pediatric); I48.91 Unspecified atrial fibrillation; C50.919 Malignant neoplasm of unspecified site of unspecified female breast; E11.65 Type 2 diabetes mellitus with hyperglycemia; E78.5 Hyperlipidemia, unspecified; F43.10 Post-traumatic stress disorder, unspecified; G47.419 Narcolepsy without cataplexy; I50.9 Heart failure, unspecified; K59.00 Constipation, unspecified; R26.89 Other abnormalities of gait and mobility; F41.9 Anxiety disorder, unspecified; I25.10 Atherosclerotic heart disease of native coronary artery without angina pectoris; Z85.038 Personal history of other malignant neoplasm of large intestine; Z90.49 Acquired absence of other specified parts of digestive tract; Z90.79 Acquired absence of other genital organ(s); Z98.41 Cataract extraction status, right eye; Z98.42 Cataract extraction status, left eye; Z87.891 Personal history of nicotine dependence; Z79.01 Long term (current) use of anticoagulants; Z79.899 Other long term (current) drug therapy; Z88.0 Allergy status to penicillin; Z88.2 Allergy status to sulfonamides; Z88.5 Allergy status to narcotic agent; Z88.6 Allergy status to analgesic agent; Z88.1 Allergy status to other antibiotic agents; Z88.8 Allergy status to other drugs, medicaments and biological substances; Z88.7 Allergy status to serum and vaccine; Z11.52 Encounter for screening for COVID-19

== ENCOUNTER → 2023-09-27 | Outpatient (CLI) | payer MEDICARE, OTHER, MEDICAID ==
[~2023-09-27] MED LIST changes: +ARNU1INH3 PO; +BUDE180INH INH; +CALC1TAB19 PO; +CEFD300CAP PO; +CETI-24 PO; +DOXY100T PO; +FLUT12AE3 IH; +GOLD BOND POWDER TOP; +JARD1TAB PO; +MEDIPAD6 EX; +MICO2CRE42 TOP; +MONT10TA97 PO; +PRED10TA2 PO; +PROA1AER2 INH; +ROSU5TAB40 PO; -ROSU5TAB5 PO; +THERTAB52 PO; +TRUL10IN INJ; +VENTAER INH
[2023-09-27 07:39] VITALS: TEMP 98.1
[2023-09-27 10:38] VITALS: BP 146/92; O2SAT 97
== END ==
LOC: M WHCPRO 07:02
PROVIDERS: ATTEND Internal Medicine
DX: R92.2 Inconclusive mammogram (principal); C50.311 Malignant neoplasm of lower-inner quadrant of right female breast; C50.411 Malignant neoplasm of upper-outer quadrant of right female breast; N63.23 Unspecified lump in the left breast, lower outer quadrant; N63.21 Unspecified lump in the left breast, upper outer quadrant

== ENCOUNTER → 2023-12-10 | Outpatient (CLI) | payer MEDICARE, OTHER, MEDICAID ==
[~2023-12-10] MED LIST changes: -CRAN400C PO; +CRANBERRY400 MG PO
== END ==
LOC: M PLARAD 14:14
PROVIDERS: ATTEND Internal Medicine
DX: C50.811 Malignant neoplasm of overlapping sites of right female breast (principal)
CPT/HCPCS: 78815; A9552

== ENCOUNTER → 2024-01-31 | Outpatient (REF) | payer MEDICARE, OTHER, MEDICAID ==
[2024-01-31 17:21] LABS: RSV AMPLIFICATION NEGATIVE (NEGATIVE)
== END ==
LOC: M LAB REF 16:29
PROVIDERS: ATTEND Internal Medicine
DX: J20.9 Acute bronchitis, unspecified (principal); J01.90 Acute sinusitis, unspecified

== ENCOUNTER 2024-03-22 14:57 | Inpatient (IN) | payer MEDICARE, OTHER, MEDICAID ==
[~2024-03-22] VITALS: Ht 157.5 cm; Wt 106.0 kg
[~2024-03-22 14:57] MED LIST changes: +BUDE180A2 INH; -BUDE180INH INH; -MEDIPAD6 EX; +MEDIPAD6 PR; +NYST1POW3 TOP; -NYST1POW9 TOP; -ROSU5TAB40 PO; +ROSU5TAB49 PO
[2024-03-22] MEDS ORDERED: ISOVUE-370 76% 100ML VIAL As Ordered ONE (15:21)
[2024-03-22 15:26] LABS: VENOUS BASE EXCESS 1.7 (-2.0-2.0); VENOUS HCO3 26.9 MMOL/L (23.0-27.0); VENOUS O2 SATURATION 62.6 % (60.0-80.0); VENOUS PARTIAL PRESSURE O2 31.9 mmHg (30.0-50.0); VENOUS PH 7.404 UNITS (7.330-7.430); VENOUS TOTAL CO2 28.2 MMOL/L (24.0-28.0)
[2024-03-22 15:31] LABS: BASO % 0.4 % (0.0-1.0); EOS % 0.4 % (0.0-3.0); HEMATOCRIT 45.4 % (36.0-47.0); LYMPH # 0.9 10^3/uL (1.5-5.0); LYMPH % 9.6 % (24.0-44.0); MEAN CORPUSCULAR HEMOGLOBIN 32.5 pg (27.0-33.0); MEAN CORPUSCULAR VOLUME 98.3 fl (80.0-96.0); MONO # 0.8 10^3/uL (0.0-0.8); MONO % 8.1 % (2.0-8.0); NEUTROPHILS # 7.8 10^3/uL (1.5-8.5); NEUTROPHILS % 81.2 % (36.0-66.0); PLATELET COUNT, AUTOMATED 286 10^3/uL (150-450); RED BLOOD COUNT 4.62 10^6/uL (4.00-5.40); WHITE BLOOD COUNT 9.6 10^3/uL (4.0-10.0)
[2024-03-22 16:00] LABS: ALBUMIN 3.6 G/DL (3.2-5.2); ALKALINE PHOSPHATASE 116 U/L (35-104); ALT/SGPT 15 U/L (7.0-40); AST/SGOT 16 U/L (<34); BILIRUBIN,DIRECT 0.2 MG/DL (<0.4); BILIRUBIN,TOTAL 0.6 MG/DL (0.3-1.2); BLOOD UREA NITROGEN 8 MG/DL (9-23); CALCIUM LEVEL 10.6 MG/DL (8.3-10.6); CARBON DIOXIDE LEVEL 31 MMOL/L (20-31); CHLORIDE LEVEL 99 MMOL/L (98-107); CREATININE FOR GFR 0.72 MG/DL (0.55-1.30); GLOMERULAR FILTRATION RATE > 60.0 (>32); GLUCOSE, FASTING 134 MG/DL (74-106); OSMOLALITY SERUM 296 MOSM/KG (280-301); POTASSIUM SERUM 4.1 MMOL/L (3.5-5.1); SODIUM LEVEL 137 MMOL/L (136-145); TOTAL PROTEIN 7.8 G/DL (5.7-8.2)
[2024-03-22 17:12] LABS: AMPHETAMINES LEVEL URINE NEGATIVE (NEGATIVE); BARBITURATES URINE NEGATIVE (NEGATIVE); BENZODIAZEPINES URINE NEGATIVE (NEGATIVE); COCAINE METABOLITE URINE NEGATIVE (NEGATIVE); METHADONE URINE NEGATIVE (NEGATIVE)
[2024-03-22 17:13] LABS: CANNABINOIDS URINE NEGATIVE (NEGATIVE); OPIATES URINE NEGATIVE (NEGATIVE); PHENCYCLIDINE URINE NEGATIVE (NEGATIVE)
[2024-03-22] MEDS ORDERED: ALBU8.5H INH (18:10)
[2024-03-22] MEDS ORDERED: DAILTAB22 PO (18:10)
[2024-03-22] MEDS ORDERED: MONT10TA97 PO (18:10)
[2024-03-22] MEDS ORDERED: MENT113P2 TOP (18:10)
[2024-03-22] MEDS ORDERED: HOME MED LIST COMPLETE! XX SCH (18:10)
[2024-03-22] MEDS ORDERED: MIRA3350 PO (18:10)
[2024-03-22] MEDS ORDERED: [UNRECOGNIZED DRUG - CODE] PO (18:10)
[2024-03-22] MEDS ORDERED: COEN100C4 PO (18:10)
[2024-03-22] MEDS ORDERED: MUCI600T31 PO (18:10)
[2024-03-22] MEDS ORDERED: TRUL10IN SC (18:10)
[2024-03-22] MEDS ORDERED: ANAS1TAB2 PO (18:10)
[2024-03-22] MEDS ORDERED: MIRALAX *UNIT DOSE* 17GM PACKET PO PRN (18:20)
[2024-03-22] MEDS ORDERED: SENOKOT S TAB PO PRN (18:20)
[2024-03-22] MEDS ORDERED: ALBUTEROL 90 MCG/ACT 8GM HFA INHALER INH PRN (18:20)
[2024-03-22] MEDS ORDERED: MOM 30ML SUSPENSION UDC PO PRN (18:20)
[2024-03-22] MEDS ORDERED: PILL CUTTER 1 EACH XX PRN (18:45)
[2024-03-22] MEDS: cefTRIAXone SOD 1 GM in DEXTROSE 5% (D5W) ADV/MINI-BAG 50 ML IV SCH (19:25)
[2024-03-22] MEDS ORDERED: GLUCOSE 4 GM CHEW PO PRN (19:45)
[2024-03-22] MEDS ORDERED: GLUCAGON INJ 1MG VIAL SC PRN (19:45)
[2024-03-22] MEDS ORDERED: DEXTROSE 50% 50ML SYRINGE IV PRN (19:45)
[2024-03-22] MEDS ORDERED: CLOPIDOGREL 75 MG TAB PO STA (20:05)
[2024-03-22] MEDS ORDERED: LABETALOL 100MG/20ML VIAL IV PRN (20:50)
[2024-03-22 20:57] VITALS: BP 132/88; TEMP 98.2; O2SAT 93
[2024-03-22] MEDS: INSULIN LISPRO (NovoLOG) PER UNIT SC SCH (21:00)
[2024-03-22] MEDS ORDERED: APIXABAN 5 MG TAB (ELIQUIS) PO SCH (21:00)
[2024-03-22] MEDS: ROSUVASTATIN 10 MG TAB (CRESTOR) PO SCH (21:44)
[2024-03-22] MEDS: guaiFENesin ER TABLET 600 MG TAB PO SCH (21:44)
[2024-03-22] MEDS: PARoxetine 20MG TABLET PO SCH (21:44)
[2024-03-22] MEDS: CETIRIZINE (ZyrTEC) 10 MG TAB PO SCH (21:44)
[2024-03-22] MEDS ORDERED: NITROGLYCERIN 0.3MG SUBL TAB SL STA (22:29)
[2024-03-22] MEDS: ONDANSETRON 4MG 2ML VIAL IV ONE (22:31)
[2024-03-22] MEDS: MORPHINE 2 MG/ML 1ML VIAL IV ONE (22:32)
[2024-03-22 22:34] VITALS: BP 165/91; O2SAT 95
[2024-03-22 22:35] VITALS: BP 165/91; PULSE 96; O2SAT 95
[2024-03-22] MEDS: NITROGLYCERIN 0.4MG SUBL TABLET SL STA (22:36)
[2024-03-22 23:22] LABS: BLOOD UREA NITROGEN 7 MG/DL (9-23); CALCIUM LEVEL 9.5 MG/DL (8.3-10.6); CARBON DIOXIDE LEVEL 29 MMOL/L (20-31); CHLORIDE LEVEL 101 MMOL/L (98-107); CPK CREATINE PHOSPHOKINASE 86 U/L (34-145); CREATININE FOR GFR 0.57 MG/DL (0.55-1.30); GLOMERULAR FILTRATION RATE > 60.0 (>32); GLUCOSE, FASTING 145 MG/DL (74-106); MAGNESIUM LEVEL 1.9 MG/DL (1.8-2.4); MB/CK RELATIVE INDEX 3.48 (< OR =4); POTASSIUM SERUM 3.8 MMOL/L (3.5-5.1); SODIUM LEVEL 137 MMOL/L (136-145)
[2024-03-22 23:27] VITALS: BP 154/86; TEMP 98; O2SAT 94
[2024-03-22] MEDS ORDERED: hydrALAZINE 20MG/ML 1ML VIAL IV PRN (23:40)
[2024-03-22] MEDS ORDERED: NITROGLYCERIN 0.4MG SUBL TABLET SL PRN (23:55)
[2024-03-22] MEDS: METOPROLOL TART 25 MG TABLET PO ONE (23:58)
[2024-03-23] VITALS (9 sets, daily range): BP systolic 121–138; BP diastolic 57–84; TEMP 97–97.7; O2SAT 92–96
[2024-03-23] MEDS: METOPROLOL TART 25 MG TABLET PO ONE (01:13)
[2024-03-23] MEDS: LOSARTAN 50MG TABLET PO ONE (01:14)
[2024-03-23] MEDS ORDERED: HEPARIN SOD (PORCINE) 5000UNITS/ML 1ML VIAL/SYRINGE IV PRN (01:40)
[2024-03-23] MEDS: HEPARIN DRIP 25,000 UNITS in IV 1 EA IV SCH (01:49)
[2024-03-23] MEDS: METOPROLOL TART 50 MG TAB PO SCH (06:22)
[2024-03-23 07:02] LABS: BASO % 0.5 % (0.0-1.0); EOS # 0.1 10^3/uL (0.0-0.5); EOS % 0.8 % (0.0-3.0); HEMATOCRIT 40.7 % (36.0-47.0); HEMOGLOBIN 13.4 g/dl (12.0-15.5); LYMPH % 11.2 % (24.0-44.0); MEAN CORPUSCULAR HEMOGLOBIN 32.9 pg (27.0-33.0); MEAN CORPUSCULAR HGB CONC 32.9 g/dl (32.0-36.5); MONO # 0.9 10^3/uL (0.0-0.8); MONO % 10.7 % (2.0-8.0); NEUTROPHILS # 6.7 10^3/uL (1.5-8.5); NEUTROPHILS % 76.3 % (36.0-66.0); PLATELET COUNT, AUTOMATED 258 10^3/uL (150-450); RED BLOOD COUNT 4.07 10^6/uL (4.00-5.40); WHITE BLOOD COUNT 8.8 10^3/uL (4.0-10.0)
[2024-03-23 07:37] LABS: BLOOD UREA NITROGEN 11 MG/DL (9-23); CALCIUM LEVEL 9.2 MG/DL (8.3-10.6); CARBON DIOXIDE LEVEL 29 MMOL/L (20-31); CHLORIDE LEVEL 103 MMOL/L (98-107); CHOLESTEROL LEVEL 130 MG/DL (<200); CHOLESTEROL RISK RATIO 3.61 (<5); CREATININE FOR GFR 0.64 MG/DL (0.55-1.30); GLOMERULAR FILTRATION RATE > 60.0 (>32); GLUCOSE, FASTING 140 MG/DL (74-106); LDL CHOLESTEROL 65.6 MG/DL (<100); POTASSIUM SERUM 4.1 MMOL/L (3.5-5.1); SODIUM LEVEL 139 MMOL/L (136-145); TRIGLYCERIDES LEVEL 142 MG/DL (<150)
[2024-03-23 07:40] LABS: HEMOGLOBIN A1c 6.8 % (4.0-6.0)
[2024-03-23] MEDS: LOSARTAN 50MG TABLET PO SCH (08:58)
[2024-03-23] MEDS: MONTELUKAST 10 MG TAB PO SCH (08:58)
[2024-03-23] MEDS: DAPAGLIFLOZIN PROPANEDIOL 10MG TABLET (FARXIGA) PO SCH (08:58)
[2024-03-23] MEDS: LETROZOLE 2.5 MG TAB PO SCH (08:58)
[2024-03-23] MEDS: INSULIN LISPRO (NovoLOG) PER UNIT SC SCH (08:59)
[2024-03-23] MEDS ORDERED: CLOPIDOGREL 75 MG TAB PO SCH (09:00)
[2024-03-23] MEDS ORDERED: METOPROLOL TART 25 MG TABLET PO SCH (09:00)
[2024-03-23] MEDS: RIVAROXABAN 20MG TAB (XARELTO) PO SCH (17:59)
[2024-03-24] VITALS (18 sets, daily range): BP systolic 115–130; BP diastolic 59–79; TEMP 96.6–98.1; O2SAT 92–97
[2024-03-24] MEDS: ACETAMINOPHEN 325 MG TAB PO PRN (06:19)
[2024-03-24 07:40] LABS: BASO # 0.1 10^3/uL (0.0-0.2); BASO % 0.5 % (0.0-1.0); EOS # 0.1 10^3/uL (0.0-0.5); HEMATOCRIT 42.1 % (36.0-47.0); HEMOGLOBIN 13.8 g/dl (12.0-15.5); LYMPH # 0.7 10^3/uL (1.5-5.0); LYMPH % 7.3 % (24.0-44.0); MEAN CORPUSCULAR HEMOGLOBIN 32.1 pg (27.0-33.0); MEAN CORPUSCULAR HGB CONC 32.8 g/dl (32.0-36.5); MEAN CORPUSCULAR VOLUME 97.9 fl (80.0-96.0); MONO % 10.1 % (2.0-8.0); NEUTROPHILS # 7.8 10^3/uL (1.5-8.5); NEUTROPHILS % 80.6 % (36.0-66.0); PLATELET COUNT, AUTOMATED 243 10^3/uL (150-450); WHITE BLOOD COUNT 9.7 10^3/uL (4.0-10.0)
[2024-03-24 08:08] LABS: BLOOD UREA NITROGEN 15 MG/DL (9-23); CARBON DIOXIDE LEVEL 29 MMOL/L (20-31); CHLORIDE LEVEL 100 MMOL/L (98-107); CREATININE FOR GFR 0.67 MG/DL (0.55-1.30); GLOMERULAR FILTRATION RATE > 60.0 (>32); GLUCOSE, FASTING 133 MG/DL (74-106); MAGNESIUM LEVEL 1.9 MG/DL (1.8-2.4); POTASSIUM SERUM 4.5 MMOL/L (3.5-5.1); SODIUM LEVEL 138 MMOL/L (136-145)
[2024-03-24] MEDS ORDERED: RIVAROXABAN 20MG TAB (XARELTO) PO SCH (10:35)
[2024-03-24] MEDS: RIVAROXABAN 15MG TAB (XARELTO) PO STA (12:55)
[2024-03-24] MEDS: CEFDINIR 300 MG CAP (OMNICEF) PO SCH (13:03)
[2024-03-24] MEDS: RIVAROXABAN 15MG TAB (XARELTO) PO SCH (17:50)
[2024-03-25] VITALS (14 sets, daily range): BP systolic 103–141; BP diastolic 58–79; TEMP 93.1–98.5; O2SAT 89–96
[2024-03-25 07:27] LABS: BASO % 0.5 % (0.0-1.0); EOS # 0.1 10^3/uL (0.0-0.5); EOS % 1.4 % (0.0-3.0); HEMOGLOBIN 13.5 g/dl (12.0-15.5); LYMPH # 0.8 10^3/uL (1.5-5.0); LYMPH % 9.3 % (24.0-44.0); MEAN CORPUSCULAR HEMOGLOBIN 32.5 pg (27.0-33.0); MEAN CORPUSCULAR HGB CONC 32.9 g/dl (32.0-36.5); MEAN CORPUSCULAR VOLUME 98.6 fl (80.0-96.0); MONO # 0.9 10^3/uL (0.0-0.8); MONO % 10.9 % (2.0-8.0); NEUTROPHILS # 6.5 10^3/uL (1.5-8.5); NEUTROPHILS % 77.5 % (36.0-66.0); PLATELET COUNT, AUTOMATED 243 10^3/uL (150-450); RED BLOOD COUNT 4.16 10^6/uL (4.00-5.40); WHITE BLOOD COUNT 8.4 10^3/uL (4.0-10.0)
[2024-03-25 07:44] LABS: BLOOD UREA NITROGEN 14 MG/DL (9-23); CALCIUM LEVEL 8.6 MG/DL (8.3-10.6); CARBON DIOXIDE LEVEL 29 MMOL/L (20-31); CHLORIDE LEVEL 102 MMOL/L (98-107); CREATININE FOR GFR 0.55 MG/DL (0.55-1.30); GLOMERULAR FILTRATION RATE > 60.0 (>32); GLUCOSE, FASTING 135 MG/DL (74-106); POTASSIUM SERUM 4.5 MMOL/L (3.5-5.1); SODIUM LEVEL 136 MMOL/L (136-145)
[2024-03-26] VITALS (11 sets, daily range): BP systolic 126–172; BP diastolic 64–74; TEMP 96–98.2; O2SAT 92–98
[2024-03-26 17:12] LABS: BASO # 0.1 10^3/uL (0.0-0.2); BASO % 0.6 % (0.0-1.0); EOS # 0.2 10^3/uL (0.0-0.5); EOS % 1.5 % (0.0-3.0); HEMATOCRIT 43.5 % (36.0-47.0); HEMOGLOBIN 14.3 g/dl (12.0-15.5); LYMPH # 1.8 10^3/uL (1.5-5.0); LYMPH % 18.1 % (24.0-44.0); MEAN CORPUSCULAR HGB CONC 32.9 g/dl (32.0-36.5); MEAN CORPUSCULAR VOLUME 97.3 fl (80.0-96.0); MONO # 1.2 10^3/uL (0.0-0.8); MONO % 12.4 % (2.0-8.0); NEUTROPHILS # 6.6 10^3/uL (1.5-8.5); NEUTROPHILS % 67.1 % (36.0-66.0); PLATELET COUNT, AUTOMATED 295 10^3/uL (150-450); RED BLOOD COUNT 4.47 10^6/uL (4.00-5.40); WHITE BLOOD COUNT 9.8 10^3/uL (4.0-10.0)
[2024-03-26 17:40] LABS: ALKALINE PHOSPHATASE 116 U/L (35-104); ALT/SGPT 14 U/L (7.0-40); AST/SGOT 14 U/L (<34); BILIRUBIN,TOTAL 0.3 MG/DL (0.3-1.2); BLOOD UREA NITROGEN 16 MG/DL (9-23); CALCIUM LEVEL 9.2 MG/DL (8.3-10.6); CARBON DIOXIDE LEVEL 25 MMOL/L (20-31); CHLORIDE LEVEL 104 MMOL/L (98-107); CK-MB VALUE MASS < 1.0 NG/ML (<3.6); CPK CREATINE PHOSPHOKINASE 62 U/L (34-145); CREATININE FOR GFR 0.54 MG/DL (0.55-1.30); GLOMERULAR FILTRATION RATE > 60.0 (>32); GLUCOSE, FASTING 127 MG/DL (74-106); MB/CK RELATIVE INDEX 1.61 (< OR =4); POTASSIUM SERUM 4.1 MMOL/L (3.5-5.1); SODIUM LEVEL 136 MMOL/L (136-145); TOTAL PROTEIN 7.4 G/DL (5.7-8.2)
[2024-03-27] VITALS (15 sets, daily range): BP systolic 141–150; BP diastolic 65–71; TEMP 96.8; O2SAT 86–97
[2024-03-27] MEDS ORDERED: CEFD300CAP PO (09:38)
[2024-03-27] MEDS ORDERED: XARE20TA PO (09:41)
[2024-03-27] MEDS ORDERED: XARE15TA PO (09:41)
[2024-03-27] MEDS ORDERED: ROSU10TA61 PO (09:41)
== END 2024-03-27 11:58 | DRG 64 ==
LOC: M ED 14:57 → M ED INP 17:36 → M PCU 21:05
PROVIDERS: ADMIT Internal Medicine; ATTEND Internal Medicine
DX: I63.40 Cerebral infarction due to embolism of unspecified cerebral artery (principal); G93.41 Metabolic encephalopathy; I50.32 Chronic diastolic (congestive) heart failure; N39.0 Urinary tract infection, site not specified; I48.20 Chronic atrial fibrillation, unspecified; I25.10 Atherosclerotic heart disease of native coronary artery without angina pectoris; E78.5 Hyperlipidemia, unspecified; I11.0 Hypertensive heart disease with heart failure; E11.9 Type 2 diabetes mellitus without complications; J45.909 Unspecified asthma, uncomplicated; G47.33 Obstructive sleep apnea (adult) (pediatric); K21.9 Gastro-esophageal reflux disease without esophagitis; M19.90 Unspecified osteoarthritis, unspecified site; G43.909 Migraine, unspecified, not intractable, without status migrainosus; F39 Unspecified mood [affective] disorder; Z90.49 Acquired absence of other specified parts of digestive tract; Z90.79 Acquired absence of other genital organ(s); Z96.642 Presence of left artificial hip joint; Z98.41 Cataract extraction status, right eye; Z98.42 Cataract extraction status, left eye; Z87.891 Personal history of nicotine dependence; Z92.3 Personal history of irradiation; Z85.038 Personal history of other malignant neoplasm of large intestine; Z92.21 Personal history of antineoplastic chemotherapy; Z85.3 Personal history of malignant neoplasm of breast; Z79.01 Long term (current) use of anticoagulants; Z79.899 Other long term (current) drug therapy; Z88.0 Allergy status to penicillin; Z88.1 Allergy status to other antibiotic agents; Z88.2 Allergy status to sulfonamides; Z88.5 Allergy status to narcotic agent; Z88.6 Allergy status to analgesic agent; Z88.8 Allergy status to other drugs, medicaments and biological substances; Z88.7 Allergy status to serum and vaccine

== ENCOUNTER → 2024-03-31 | Outpatient (REF) | payer MEDICARE, OTHER, MEDICAID ==
[~2024-03-31] MED LIST changes: +ALBU8.5H INH; +ANAS1TAB2 PO; +COEN100C4 PO; +DAILTAB22 PO; +MENT113P2 TOP; +MIRA3350 PO; +MUCI600T31 PO; +ROSU10TA61 PO; +TRUL10IN SC; +XARE15TA PO; +XARE20TA PO; +[UNRECOGNIZED DRUG - CODE] PO
== END ==
LOC: M LAB REF 16:25
PROVIDERS: ATTEND Internal Medicine
DX: R32 Unspecified urinary incontinence (principal); N39.0 Urinary tract infection, site not specified

== ENCOUNTER → 2024-04-02 | Outpatient (REF) | payer MEDICARE, OTHER, MEDICAID | PROVIDERS: ATTEND Internal Medicine | DX: R31.9 Hematuria, unspecified (principal) ==

== ENCOUNTER → 2024-04-08 | Outpatient (REF) | payer MEDICARE, OTHER, MEDICAID | PROVIDERS: ATTEND Internal Medicine | DX: R31.9 Hematuria, unspecified (principal); B37.89 Other sites of candidiasis ==

== ENCOUNTER → 2024-04-15 | Outpatient (REF) | payer MEDICARE, OTHER, MEDICAID | PROVIDERS: ATTEND Internal Medicine | DX: R31.9 Hematuria, unspecified (principal) ==

== ENCOUNTER 2024-05-20 11:55 | Emergency (ER) | payer MEDICARE, OTHER, MEDICAID ==
[~2024-05-20] VITALS: Ht 157.5 cm; Wt 109.1 kg
[2024-05-20 12:27] LABS: BASO % 0.5 % (0.0-1.0); EOS # 0.1 10^3/uL (0.0-0.5); EOS % 1.2 % (0.0-3.0); HEMATOCRIT 43.1 % (36.0-47.0); LYMPH # 0.8 10^3/uL (1.5-5.0); LYMPH % 11.4 % (24.0-44.0); MEAN CORPUSCULAR HEMOGLOBIN 31.6 pg (27.0-33.0); MEAN CORPUSCULAR HGB CONC 32.5 g/dl (32.0-36.5); MEAN CORPUSCULAR VOLUME 97.3 fl (80.0-96.0); MONO # 0.7 10^3/uL (0.0-0.8); MONO % 9.5 % (2.0-8.0); NEUTROPHILS # 5.6 10^3/uL (1.5-8.5); NEUTROPHILS % 76.9 % (36.0-66.0); PLATELET COUNT, AUTOMATED 276 10^3/uL (150-450); RED BLOOD COUNT 4.43 10^6/uL (4.00-5.40); WHITE BLOOD COUNT 7.3 10^3/uL (4.0-10.0)
[2024-05-20 12:43] LABS: INR 1.52; PARTIAL THROMBOPLASTIN TIME 40.1 SECONDS (24.8-34.2); PROTHROMBIN TIME 18.5 SECONDS (12.5-14.5)
[2024-05-20 18:54] VITALS: BP 141/88; TEMP 97.8; O2SAT 95
[2024-05-21] MEDS ORDERED: SODI88SP NARES (08:11)
== END 2024-05-20 19:00 | disposition home or self-care (01) ==
LOC: EDBD 11:55 → M ED 11:55
DX: H53.8 Other visual disturbances (principal); H52.7 Unspecified disorder of refraction; I48.91 Unspecified atrial fibrillation; E11.9 Type 2 diabetes mellitus without complications; I11.0 Hypertensive heart disease with heart failure; E78.5 Hyperlipidemia, unspecified; E66.9 Obesity, unspecified; Z85.3 Personal history of malignant neoplasm of breast; Z90.49 Acquired absence of other specified parts of digestive tract; Z85.038 Personal history of other malignant neoplasm of large intestine; Z87.891 Personal history of nicotine dependence; Z79.899 Other long term (current) drug therapy; Z88.6 Allergy status to analgesic agent; Z88.0 Allergy status to penicillin; Z88.2 Allergy status to sulfonamides; Z88.5 Allergy status to narcotic agent; Z88.1 Allergy status to other antibiotic agents; Z88.8 Allergy status to other drugs, medicaments and biological substances; Z88.7 Allergy status to serum and vaccine

== ENCOUNTER 2024-05-21 07:22 | Emergency (ER) | payer MEDICARE, OTHER, MEDICAID ==
[~2024-05-21] VITALS: Ht 157.5 cm; Wt 109.1 kg
[2024-05-21] MEDS: SILVER NITRATE APPLICATOR (1 = QTY 10) TOP ONE (07:55)
[2024-05-21] MEDS: OXYMETAZOLINE 0.05% NASAL SPRAY (AFRIN) ONE (07:55)
[2024-05-21] MEDS ORDERED: SODI88SP NARES (08:11)
[2024-05-21 08:44] VITALS: BP 146/65; TEMP 97.3; O2SAT 94
== END 2024-05-21 09:30 | disposition home or self-care (01) ==
LOC: EDBD 07:22 → M ED 07:22
DX: R04.0 Epistaxis (principal); I48.91 Unspecified atrial fibrillation; I11.0 Hypertensive heart disease with heart failure; E11.9 Type 2 diabetes mellitus without complications; J45.909 Unspecified asthma, uncomplicated; K21.9 Gastro-esophageal reflux disease without esophagitis; F43.10 Post-traumatic stress disorder, unspecified; F41.9 Anxiety disorder, unspecified; F32.A Depression, unspecified; Z87.891 Personal history of nicotine dependence; G43.909 Migraine, unspecified, not intractable, without status migrainosus; E55.9 Vitamin D deficiency, unspecified; Z85.038 Personal history of other malignant neoplasm of large intestine; Z85.3 Personal history of malignant neoplasm of breast; Z79.899 Other long term (current) drug therapy; Z88.6 Allergy status to analgesic agent; Z88.0 Allergy status to penicillin; Z88.2 Allergy status to sulfonamides; Z88.8 Allergy status to other drugs, medicaments and biological substances; Z88.5 Allergy status to narcotic agent; Z88.7 Allergy status to serum and vaccine

== ENCOUNTER 2024-08-31 10:20 | Emergency (ER) | payer MEDICARE, OTHER, MEDICAID ==
[~2024-08-31] VITALS: Ht 157.5 cm; Wt 104.5 kg
[~2024-08-31 10:20] MED LIST changes: +SODI88SP NARES
[2024-08-31 10:57] LABS: VENOUS BASE EXCESS 4.2 (-2.0-2.0); VENOUS HCO3 28.1 MMOL/L (23.0-27.0); VENOUS O2 SATURATION 91.5 % (60.0-80.0); VENOUS PARTIAL PRESSURE CO2 39.8 mmHg (38.0-50.0); VENOUS PARTIAL PRESSURE O2 59.8 mmHg (30.0-50.0); VENOUS PH 7.467 UNITS (7.330-7.430); VENOUS TOTAL CO2 29.3 MMOL/L (24.0-28.0)
[2024-08-31 11:00] LABS: BASO # 0.1 10^3/uL (0.0-0.2); BASO % 0.5 % (0.0-1.0); EOS # 0.1 10^3/uL (0.0-0.5); EOS % 1.3 % (0.0-3.0); HEMATOCRIT 39.7 % (36.0-47.0); HEMOGLOBIN 13.3 g/dl (12.0-15.5); LYMPH # 0.9 10^3/uL (1.5-5.0); LYMPH % 8.6 % (24.0-44.0); MEAN CORPUSCULAR HEMOGLOBIN 31.9 pg (27.0-33.0); MEAN CORPUSCULAR HGB CONC 33.5 g/dl (32.0-36.5); MEAN CORPUSCULAR VOLUME 95.2 fl (80.0-96.0); MONO # 0.7 10^3/uL (0.0-0.8); NEUTROPHILS # 8.2 10^3/uL (1.5-8.5); NEUTROPHILS % 82.1 % (36.0-66.0); PLATELET COUNT, AUTOMATED 271 10^3/uL (150-450); RED BLOOD COUNT 4.17 10^6/uL (4.00-5.40)
[2024-08-31] MEDS: IPRATROPIUM 0.5MG/ALBUTEROL 2.5MG INH SOL UD 3ML NEB PRN (11:05)
[2024-08-31 11:26] LABS: ALBUMIN 3.2 G/DL (3.2-5.2); BILIRUBIN,DIRECT 0.2 MG/DL (<0.4); BILIRUBIN,TOTAL 0.5 MG/DL (0.3-1.2); CALCIUM LEVEL 9.1 MG/DL (8.3-10.6); CREATININE FOR GFR 0.65 MG/DL (0.55-1.30); GLOMERULAR FILTRATION RATE 86.2 (>32); POTASSIUM SERUM 3.6 MMOL/L (3.5-5.1); TOTAL PROTEIN 7.1 G/DL (5.7-8.2)
[2024-08-31 11:28] LABS: THYROID STIMULATING HORMONE 2.221 uIU/ML (0.55-4.78)
[2024-08-31] MEDS ORDERED: CLOP75TA2 PO (12:21)
[2024-08-31] MEDS ORDERED: CALC1TAB42 PO (12:21)
[2024-08-31 12:37] VITALS: O2SAT 92
[2024-08-31] MEDS ORDERED: PRED20TA PO (12:42)
[2024-08-31] MEDS ORDERED: ALB2.5NEB NEB (12:51)
[2024-08-31 13:15] VITALS: BP 141/70; TEMP 98.7; O2SAT 91
[2024-08-31] MEDS ORDERED: TRUL0.5I SC (13:17)
[2024-08-31] MEDS ORDERED: XARE15TA PO (13:22)
[2024-08-31] MEDS ORDERED: HOME MED LIST COMPLETE! XX SCH (13:25)
== END 2024-08-31 13:40 | disposition home or self-care (01) ==
LOC: M ED 10:20 → EDBD 10:20 → M ED 13:40
DX: J45.901 Unspecified asthma with (acute) exacerbation (principal); B34.8 Other viral infections of unspecified site; B34.1 Enterovirus infection, unspecified; J81.1 Chronic pulmonary edema; I48.91 Unspecified atrial fibrillation; I11.0 Hypertensive heart disease with heart failure; I25.2 Old myocardial infarction; E11.9 Type 2 diabetes mellitus without complications; E78.5 Hyperlipidemia, unspecified; G47.33 Obstructive sleep apnea (adult) (pediatric); Z85.3 Personal history of malignant neoplasm of breast; Z87.891 Personal history of nicotine dependence; Z85.038 Personal history of other malignant neoplasm of large intestine; Z79.899 Other long term (current) drug therapy; Z88.6 Allergy status to analgesic agent; Z88.0 Allergy status to penicillin; Z88.2 Allergy status to sulfonamides; Z88.5 Allergy status to narcotic agent; Z88.1 Allergy status to other antibiotic agents; Z88.8 Allergy status to other drugs, medicaments and biological substances; Z88.7 Allergy status to serum and vaccine

== ENCOUNTER → 2024-09-18 | Outpatient (REF) | payer MEDICARE, OTHER, MEDICAID ==
[~2024-09-18] MED LIST changes: +ALB2.5NEB NEB; +CALC1TAB42 PO; +CLOP75TA2 PO; +PRED20TA PO; +TRUL0.5I SC
== END ==
LOC: M LAB REF 14:37
PROVIDERS: ATTEND Internal Medicine
DX: I50.32 Chronic diastolic (congestive) heart failure (principal); I48.20 Chronic atrial fibrillation, unspecified; G47.33 Obstructive sleep apnea (adult) (pediatric)

== ENCOUNTER 2025-02-12 18:25 | Inpatient (IN) | payer MEDICARE, OTHER, MEDICAID ==
[~2025-02-12] VITALS: Ht 157.5 cm; Wt 99.7 kg
[~2025-02-12 18:25] MED LIST changes: +ACET-1515 PO; -ACET650T15 PO
[2025-02-12] MEDS: ACETAMINOPHEN 325 MG TAB PO ONE ×2 (18:59→23:03)
[2025-02-12] MEDS ORDERED: JARD1TAB3 PO (19:22)
[2025-02-12] MEDS ORDERED: LEVOTAB10 PO (19:22)
[2025-02-12] MEDS ORDERED: CVSTAB PO (19:34)
[2025-02-12] MEDS ORDERED: HOME MED LIST COMPLETE! XX SCH (19:45)
[2025-02-12 20:07] LABS: BASO # 0.1 10^3/uL (0.0-0.2); BASO % 0.5 % (0.0-1.0); EOS # 0.1 10^3/uL (0.0-0.5); EOS % 0.4 % (0.0-3.0); LYMPH # 0.5 10^3/uL (1.5-5.0); LYMPH % 3.9 % (24.0-44.0); MONO # 1.3 10^3/uL (0.0-0.8); MONO % 10.8 % (2.0-8.0); NEUTROPHILS # 10.1 10^3/uL (1.5-8.5); NEUTROPHILS % 83.9 % (36.0-66.0); PLATELET COUNT, AUTOMATED 323 10^3/uL (150-450)
[2025-02-12 20:20] LABS: INR 1.43
[2025-02-12 20:37] LABS: FREE T4 0.91 NG/DL (0.89-1.76)
[2025-02-12 20:39] LABS: CK-MB VALUE MASS 1.2 NG/ML (<3.6)
[2025-02-12 20:41] LABS: ALT/SGPT 17.0 U/L (7.0-40); AST/SGOT 17.0 U/L (<34); CALCIUM LEVEL 8.4 MG/DL (8.3-10.6); CARBON DIOXIDE LEVEL 24.0 MMOL/L (20-31); CHLORIDE LEVEL 101.0 MMOL/L (98-107); CPK CREATINE PHOSPHOKINASE 68.0 U/L (34-145); CREATININE FOR GFR 0.78 MG/DL (0.55-1.30); GLOMERULAR FILTRATION RATE 73.9 (>32); MB/CK RELATIVE INDEX 1.76 (< OR =4); POTASSIUM SERUM 4.2 MMOL/L (3.5-5.1); SODIUM LEVEL 136.0 MMOL/L (136-145)
[2025-02-12] MEDS: cefTRIAXone SOD 2 GM in DEXTROSE 5% (D5W) ADV/MINI-BAG 50 ML IV ONE (20:48)
[2025-02-12 20:58] LABS: KETONE, URINE AUTO RFX 1+ mg/dL (NEGATIVE); LEUKOCYTE ESTERASE UR AUTO RFX 1+ (NEGATIVE); MUCUS, URINE RFX SMALL (NEGATIVE); NITRITE, URINE AUTO RFX NEGATIVE (NEGATIVE); RBC, URINE AUTO RFX 2 /HPF (0-3); SQUAM EPITHELIAL CELL UR AURFX 0 /HPF (0-6); WBC, URINE AUTO RFX 45 /HPF (0-3)
[2025-02-12] MEDS: NS (Normal Saline) 0.9% 1,000 ML IV SCH (22:56)
[2025-02-12] MEDS ORDERED: MOM 30 ML SUSPENSION UDC PO PRN (23:30)
[2025-02-12] MEDS ORDERED: MIRALAX *UNIT DOSE* 17 GM PACKET PO PRN (23:30)
[2025-02-12] MEDS ORDERED: ONDANSETRON 4MG 2ML VIAL IV PRN (23:30)
[2025-02-12] MEDS ORDERED: LEVALBUTEROL 1.25 MG 0.5ML CONCENTRATE NEB INH PRN (23:30)
[2025-02-12] MEDS ORDERED: DEXTROMETHORPHAN 60 MG/10 ML SUSP 90 ML BTL PO PRN (23:30)
[2025-02-12] MEDS ORDERED: GLUCOSE 4 GM CHEW PO PRN (23:30)
[2025-02-12] MEDS ORDERED: DEXTROSE 50% 50 ML SYRINGE IV PRN (23:30)
[2025-02-12] MEDS ORDERED: GLUCAGON INJ 1 MG VIAL SC PRN (23:30)
[2025-02-13] VITALS (7 sets, daily range): BP systolic 105–138; BP diastolic 49–83; TEMP 97.2–97.9; O2SAT 93–95
[2025-02-13 00:11] LABS: MAGNESIUM LEVEL 2.0 MG/DL (1.8-2.4)
[2025-02-13] MEDS: CETIRIZINE 10 MG TAB PO SCH (01:44)
[2025-02-13] MEDS: PARoxetine 20MG TABLET PO SCH (01:44)
[2025-02-13] MEDS: ACETAMINOPHEN 500 MG TAB PO PRN (05:22)
[2025-02-13] MEDS: INSULIN LISPRO (NovoLOG) PER UNIT SC SCH ×2 (08:47→20:02)
[2025-02-13] MEDS: NYSTATIN 100,000 UNITS/GM TOPICAL PWD 15 GM TOP SCH (08:47)
[2025-02-13] MEDS: SODIUM CHLORIDE NASAL 0.65% SPRAY BTL (OCEAN) SCH (08:48)
[2025-02-13] MEDS: RIVAROXABAN 15MG TAB PO SCH (08:50)
[2025-02-13] MEDS: guaiFENesin ER TABLET 600 MG TAB PO SCH (08:50)
[2025-02-13] MEDS: MONTELUKAST 10 MG TAB PO SCH (08:50)
[2025-02-13] MEDS: FUROSEMIDE 20 MG TAB PO SCH (08:51)
[2025-02-13] MEDS: dilTIAZem 60 MG TAB PO SCH (08:51)
[2025-02-13 08:58] LABS: PLATELET COUNT, AUTOMATED 297 10^3/uL (150-450)
[2025-02-13] MEDS: LOSARTAN 25 MG TAB PO SCH (09:00)
[2025-02-13] MEDS ORDERED: ACETAMINOPHEN 650 MG ER TAB PO SCH (09:00)
[2025-02-13 09:31] LABS: ALT/SGPT 14.0 U/L (7.0-40); AST/SGOT 16.0 U/L (<34); CALCIUM LEVEL 8.2 MG/DL (8.3-10.6); CARBON DIOXIDE LEVEL 24.0 MMOL/L (20-31); CHLORIDE LEVEL 103.0 MMOL/L (98-107); CREATININE FOR GFR 0.66 MG/DL (0.55-1.30); GLOMERULAR FILTRATION RATE 85.4 (>32); MAGNESIUM LEVEL 2.0 MG/DL (1.8-2.4); POTASSIUM SERUM 4.0 MMOL/L (3.5-5.1); SODIUM LEVEL 136.0 MMOL/L (136-145)
[2025-02-13] MEDS: MICONAZOLE TOPICAL 2% CREAM 15 GM TOP SCH (17:29)
[2025-02-13] MEDS: CLOPIDOGREL 75 MG TAB PO SCH (17:29)
[2025-02-13] MEDS: cefTRIAXone SOD 1 GM in DEXTROSE 5% (D5W) ADV/MINI-BAG 50 ML IV SCH (20:37)
[2025-02-13] MEDS: CO-ENZYME Q10 50 MG CAP PO SCH (20:38)
[2025-02-13] MEDS: DOCUSATE SODIUM 100 MG CAPSULE PO SCH (20:39)
[2025-02-13] MEDS: ROSUVASTATIN 10 MG TAB PO SCH (20:43)
[2025-02-14 04:10] VITALS: BP 132/74; TEMP 98.1; O2SAT 94
[2025-02-14 10:00] VITALS: BP 132/73; TEMP 98.3; O2SAT 91
[2025-02-14] MEDS: CEFDINIR 300 MG CAP PO SCH (11:04)
[2025-02-14 12:33] LABS: BASO # 0.1 10^3/uL (0.0-0.2); BASO % 0.7 % (0.0-1.0); EOS # 0.0 10^3/uL (0.0-0.5); EOS % 0.4 % (0.0-3.0); LYMPH # 0.6 10^3/uL (1.5-5.0); LYMPH % 6.5 % (24.0-44.0); MONO # 1.2 10^3/uL (0.0-0.8); MONO % 12.9 % (2.0-8.0); NEUTROPHILS # 7.1 10^3/uL (1.5-8.5); NEUTROPHILS % 79.1 % (36.0-66.0); PLATELET COUNT, AUTOMATED 293 10^3/uL (150-450)
[2025-02-14 13:03] LABS: CALCIUM LEVEL 7.9 MG/DL (8.3-10.6); CARBON DIOXIDE LEVEL 26.0 MMOL/L (20-31); CHLORIDE LEVEL 99.0 MMOL/L (98-107); CREATININE FOR GFR 0.67 MG/DL (0.55-1.30); GLOMERULAR FILTRATION RATE 85.1 (>32); POTASSIUM SERUM 3.7 MMOL/L (3.5-5.1); SODIUM LEVEL 137.0 MMOL/L (136-145)
[2025-02-14 14:00] VITALS: BP 136/72; TEMP 98.8; O2SAT 95
[2025-02-14 19:24] VITALS: BP 133/71; TEMP 97.8; O2SAT 91
[2025-02-15 00:02] VITALS: BP 147/67; TEMP 97.7; O2SAT 90
[2025-02-15 04:12] VITALS: BP 144/62; TEMP 97.7; O2SAT 94
[2025-02-15 14:00] VITALS: TEMP 97.6; O2SAT 90
[2025-02-15 20:56] VITALS: BP 128/70; TEMP 97.6; O2SAT 93
[2025-02-15 20:59] VITALS: BP 128/70; TEMP 97.5; O2SAT 93
[2025-02-16 04:51] VITALS: BP 119/50; TEMP 97.7; O2SAT 92
[2025-02-16 08:45] VITALS: BP 143/63
[2025-02-16] MEDS ORDERED: CEFD300CAP PO (09:56)
== END 2025-02-16 13:05 | DRG 872 ==
LOC: EDBD 18:25 → M ED 18:25 → M ED INP 23:29 → INTOOBSV 23:29 → M MS5PR 02-13 00:31 → OBSVTOIN 02-16 10:51 → UNDODISOB 02-16 13:05
PROVIDERS: ADMIT Student in an Organized Health Care Education/Training Program; ATTEND Internal Medicine
DX: A41.9 Sepsis, unspecified organism (principal); N39.0 Urinary tract infection, site not specified; I50.32 Chronic diastolic (congestive) heart failure; Z66 Do not resuscitate; I48.91 Unspecified atrial fibrillation; E78.5 Hyperlipidemia, unspecified; J06.9 Acute upper respiratory infection, unspecified; I11.0 Hypertensive heart disease with heart failure; E11.9 Type 2 diabetes mellitus without complications; K21.9 Gastro-esophageal reflux disease without esophagitis; M19.90 Unspecified osteoarthritis, unspecified site; G47.33 Obstructive sleep apnea (adult) (pediatric); G43.909 Migraine, unspecified, not intractable, without status migrainosus; F39 Unspecified mood [affective] disorder; F43.10 Post-traumatic stress disorder, unspecified; K59.09 Other constipation; F41.9 Anxiety disorder, unspecified; Z96.642 Presence of left artificial hip joint; Z85.3 Personal history of malignant neoplasm of breast; Z92.21 Personal history of antineoplastic chemotherapy; Z90.49 Acquired absence of other specified parts of digestive tract; Z98.41 Cataract extraction status, right eye; Z98.42 Cataract extraction status, left eye; Z85.038 Personal history of other malignant neoplasm of large intestine; Z86.73 Personal history of transient ischemic attack (TIA), and cerebral infarction without residual deficits; Z87.891 Personal history of nicotine dependence; Z90.79 Acquired absence of other genital organ(s); Z92.3 Personal history of irradiation; Z79.899 Other long term (current) drug therapy; Z88.5 Allergy status to narcotic agent; Z88.0 Allergy status to penicillin; Z88.1 Allergy status to other antibiotic agents; Z88.7 Allergy status to serum and vaccine; Z88.8 Allergy status to other drugs, medicaments and biological substances; Z79.01 Long term (current) use of anticoagulants